=== PATIENT | male | born 1940 | race Caucasian/White ===

== ENCOUNTER 2020-08-30 14:27 | Outpatient (CLI) | payer OTHER, SELFPAY ==
--- NOTE | ~2020-08-30 | XR_ITS ---
EXAMINATION: XR chest 2V DATE: 08/30/2020 15:00 INDICATION: Shortness of breath TECHNIQUE: PA and lateral views of the chest were obtained. COMPARISON: Chest radiograph dated 01/06/2019 FINDINGS: Emphysema with prominent bullous change at the bilateral apices of the lungs. Additional chronic pleu ral parenchymal scarring at the right apex. Elevation of the left hemidiaphragm. There is increased i nterstitial pattern and mild groundglass opacities in the bilateral mid and lower lung zones. No pleu ral effusion or pneumothorax. Borderline heart size accounting for AP technique. Right coronary arter y stenting. Severe left glenohumeral osteoarthritis. IMPRESSION: 1. Interstitial and mild airspace opacities in the bilateral mid and lower lung zones most likely con gestive heart failure related mild pulmonary edema although differential includes pneumonia. 2. Emphysema with chronic right apical pleural-parenchymal scarring. 3. Chronic elevation of the left hemidiaphragm. 4. Borderline heart size. Reviewed, dictated and finalized at location B. X RAY OPERATOR IMPRESSION: 1. Interstitial and mild airspace opacities in the bilateral mid and lower lung zones most likely congestive heart failure related mild pulmonary edema althou gh differential includes pneumonia. 2. Emphysema with chronic right apical pleural-parenchymal scarring. 3. Chronic elevation of the left hemidiaphragm. 4. Borderline heart size.
[2020-08-30 15:33] LABS: Basophils Absolute Auto 0.1 K/mm3 (0.0-0.1); Basophils Percent Auto 0.8 % (0.2-1.2); Eosinophils Absolute Auto 0.4 K/mm3 (0-0.3); Eosinophils Percent Auto 5.4 % (0-4.4); Hematocrit 50.9 % (42.0-52.0); Immature Granulocyte Absolute 0.04 K/mm3 (0.00-0.031); Immature Granulocyte Percent A 0.5 % (0-0.5); Lymphocytes Absolute Auto 1.24 K/mm3 (0.9-3.2); Lymphocytes Percent Auto 16.3 % (18.3-44.2); Mean Corpuscular HGB Conc 33.4 g/dl (32-36); Mean Corpuscular Volume 95.7 fl (80-100); Mean Platelet Volume 8.8 fl (7.4-10.4); Monocytes Absolute Auto 0.7 K/mm3 (0.1-0.6); Monocytes Percent Auto 9.4 % (2.6-8.5); Neutrophils Absolute Auto 5.1 K/mm3 (1.3-6.7); Neutrophils Percent Auto 67.6 % (45.5-73.1); Platelet Count Result 167 k/mm3 (150-375); Red Blood Count 5.32 M/mm3 (4.6-6.20); Red Cell Distribution Width 13.2 % (11.5-14.5); White Blood Count 7.6 K/mm3 (4.5-10.0)
[2020-08-30 15:46] LABS: Alanine Aminotransferase 20 U/L (4-50); Albumin Level 4.2 g/dL (3.5-5.1); Alkaline Phosphatase 72 U/L (38-126); Anion Gap 4 mmol/L (8-16); Aspartate Amino Transferase 36 U/L (17-59); Bilirubin,Total 0.6 mg/dL (0.2-1.3); Blood Urea Nitrogen 15 mg/dL (9-20); Calcium 9.1 mg/dL (8.4-10.2); Carbon Dioxide 30 mmol/L (22-30); Chloride 104 mmol/L (98-107); Estimated Glomerular Filt Rate > 60; Glucose 77 mg/dL (75-110); Potassium 4.7 mmol/L (3.4-5.0); Sodium 138 mmol/L (137-145)
[2020-08-30 15:55] LABS: NT Pro B Type Natriuretic Pept 102 PG/ML (5-100)
== END 2020-08-30 14:28 | disposition home or self-care (01) ==
PROVIDERS: PCP Family Medicine; Visit Provider Physician Assistant
DX: I50.9 Heart failure, unspecified (principal); R06.02 Shortness of breath; R60.9 Edema, unspecified; J43.9 Emphysema, unspecified; R91.8 Other nonspecific abnormal finding of lung field
CPT/HCPCS: 36415; 71046; 80053; 83880; 84443; 85025

== ENCOUNTER 2020-09-07 14:44 | Outpatient (CLI) | payer OTHER, SELFPAY ==
--- NOTE | ~2020-09-07 | XR_ITS ---
EXAMINATION: XR chest 2V DATE: 09/07/2020 15:30 INDICATION: Shortness of breath. TECHNIQUE: Frontal and lateral views of the chest were obtained. COMPARISON: Chest 2 views 08/30/2020, chest CT 07/11/2013 FINDINGS: Again seen is marked elevation of left hemidiaphragm. There are lucencies in the lungs, con sistent with emphysema. There is scarring at the lung apices. There are interstitial opacities and mi ld diffuse airspace opacities in the mid and lower lung zones. No pleural effusion or pneumothorax. T he heart size is normal. IMPRESSION: 1. Stable airspace and interstitial opacities in the mid and lower lung zones, consistent with pneumo maritza versus mild pulmonary edema. 2. Emphysema. 3. Persistent marked elevation of left hemidiaphragm. Reviewed, dictated and finalized at location A. TER PILOT IMPRESSION: 1. Stable airspace and interstitial opacities in the mid and lower lung zones, consistent with pneumonia versus mild pulmonary edema. 2. Emphysema. 3. Persistent marked elevation of left hemidiaphragm.
[2020-09-07 15:26] LABS: Basophils Absolute Auto 0.1 K/mm3 (0.0-0.1); Basophils Percent Auto 0.9 % (0.2-1.2); Eosinophils Absolute Auto 0.4 K/mm3 (0-0.3); Eosinophils Percent Auto 6.1 % (0-4.4); Hematocrit 50.2 % (42.0-52.0); Hemoglobin 16.9 g/dL (14.0-18.0); Immature Granulocyte Absolute 0.03 K/mm3 (0.00-0.031); Immature Granulocyte Percent A 0.4 % (0-0.5); Lymphocytes Absolute Auto 1.31 K/mm3 (0.9-3.2); Lymphocytes Percent Auto 19.6 % (18.3-44.2); Mean Corpuscular HGB Conc 33.7 g/dl (32-36); Mean Corpuscular Hemoglobin 32.4 pg (26-34); Mean Corpuscular Volume 96.4 fl (80-100); Mean Platelet Volume 9.5 fl (7.4-10.4); Monocytes Absolute Auto 0.5 K/mm3 (0.1-0.6); Monocytes Percent Auto 8.1 % (2.6-8.5); Neutrophils Absolute Auto 4.4 K/mm3 (1.3-6.7); Neutrophils Percent Auto 64.9 % (45.5-73.1); Platelet Count Result 153 k/mm3 (150-375); Red Blood Count 5.21 M/mm3 (4.6-6.20); Red Cell Distribution Width 13.2 % (11.5-14.5); White Blood Count 6.7 K/mm3 (4.5-10.0)
[2020-09-07 15:39] LABS: Alanine Aminotransferase 20 U/L (4-50); Albumin Level 4.3 g/dL (3.5-5.1); Alkaline Phosphatase 76 U/L (38-126); Anion Gap 7 mmol/L (8-16); Aspartate Amino Transferase 38 U/L (17-59); Bilirubin,Total 0.5 mg/dL (0.2-1.3); Blood Urea Nitrogen 20 mg/dL (9-20); Calcium 8.8 mg/dL (8.4-10.2); Carbon Dioxide 29 mmol/L (22-30); Chloride 106 mmol/L (98-107); Estimated Glomerular Filt Rate > 60; Glucose 88 mg/dL (75-110); Potassium 4.3 mmol/L (3.4-5.0); Sodium 142 mmol/L (137-145)
[2020-09-07 15:48] LABS: NT Pro B Type Natriuretic Pept 89 PG/ML (5-100)
== END 2020-09-07 14:45 | disposition home or self-care (01) ==
PROVIDERS: PCP Family Medicine; Visit Provider Physician Assistant
DX: I50.9 Heart failure, unspecified (principal); R06.00 Dyspnea, unspecified; J44.9 Chronic obstructive pulmonary disease, unspecified; J43.9 Emphysema, unspecified; R91.8 Other nonspecific abnormal finding of lung field
CPT/HCPCS: 36415; 71046; 80053; 83880; 85025

== ENCOUNTER 2020-09-19 08:51 | Outpatient (CLI) | payer OTHER, SELFPAY ==
--- NOTE | ~2020-09-19 | XR_ITS ---
EXAMINATION: XR chest 2V DATE: 09/19/2020 09:04 INDICATION: Shortness of breath TECHNIQUE: PA and lateral views of the chest are obtained. COMPARISON: 09/07/2020 FINDINGS: There is chronic elevation of the left hemidiaphragm. Interstitial and airspace opacities o f the mid and lower lung zones persist with slight improvement. There is scarring in the right lung a pex. There is no pleural effusion or pneumothorax. The heart size is normal. A coronary artery stent is noted. There is moderate thoracic spondylosis. IMPRESSION: 1. Persistent but improved interstitial and airspace opacities of the mid and lower lung zones, consi stent with pulmonary edema versus pneumonia. Reviewed, dictated and finalized at location A. TECHNOLOGY ENGINEERING TECHNOLOGIST IMPRESSION: 1. Persistent but improved interstitial and airspace opacities of the mid and l ower lung zones, consistent with pulmonary edema versus pneumonia.
== END 2020-09-19 08:52 | disposition home or self-care (01) ==
PROVIDERS: PCP Family Medicine; Visit Provider Physician Assistant
DX: R06.02 Shortness of breath (principal); R91.8 Other nonspecific abnormal finding of lung field
CPT/HCPCS: 71046

== ENCOUNTER → 2020-09-26 11:46 | Outpatient (CLI) | payer OTHER, SELFPAY ==
--- NOTE | ~2020-09-26 | CT_ITS ---
EXAMINATION: CT diagnostic chest wo con DATE: 09/26/2020 11:59 INDICATION: Dyspnea. Shortness of breath. TECHNIQUE: Computed tomography (CT) of the chest was performed without intravenous contrast. Automate d exposure control and iterative reconstruction technique were employed. Exam dose: 709.42 mGy-cm to dorothy exam DLP. COMPARISON: 09/19/2020 2 view chest 07/11/2013 CT chest FINDINGS: There are prominent emphysematous changes, more prominent in the upper lobes. There is bilateral upper lobe/apical scarring, right greater than left, stable since 07/11/2013. No interval pulmonary mass lesion or pulmonary consolidation. Chronic elevation of the left leaf of the diaphragm. No thoracic aortic aneurysm or dissection. There is aortic and coronary artery calcification. Normal heart size. No pericardial effusion. No hilar or mediastinal mass lesion or lymphadenopathy is eviden t. Normal morphology of the adrenal glands. Probable exophytic upper pole 2.9 cm right renal cyst. No suspicious osteolytic or osteoblastic lesions are noted. IMPRESSION: Prominent emphysema Bilateral upper lobe scarring, right greater than left, stable since 07/11/2013 Chronic elevation of left leaf of diaphragm Reviewed, dictated and finalized at [facility]. Reviewed, dictated and finalized at location A. MACISTS
== END ==
PROVIDERS: PCP Family Medicine; Visit Provider Physician Assistant
DX: R06.00 Dyspnea, unspecified (principal); J43.9 Emphysema, unspecified; R91.8 Other nonspecific abnormal finding of lung field
CPT/HCPCS: 71250

== ENCOUNTER 2021-07-17 10:12 | Outpatient (CLI) | payer OTHER, SELFPAY ==
[2021-07-17 11:19] LABS: Basophils Absolute Auto 0.1 K/mm3 (0.0-0.1); Basophils Percent Auto 0.9 % (0.2-1.2); Eosinophils Absolute Auto 0.3 K/mm3 (0-0.3); Eosinophils Percent Auto 5.6 % (0-4.4); Hematocrit 50.4 % (42.0-52.0); Hemoglobin 16.7 g/dL (14.0-18.0); Immature Granulocyte Absolute 0.02 K/mm3 (0.00-0.031); Immature Granulocyte Percent A 0.3 % (0-0.5); Immature Platelet Fraction Pct 2.1 % (0.9-11.2); Lymphocytes Absolute Auto 0.97 K/mm3 (0.9-3.2); Lymphocytes Percent Auto 16.5 % (18.3-44.2); Mean Corpuscular HGB Conc 33.1 g/dl (32-36); Mean Corpuscular Hemoglobin 32.6 pg (26-34); Mean Corpuscular Volume 98.4 fl (80-100); Mean Platelet Volume 9.5 fl (7.4-10.4); Monocytes Absolute Auto 0.6 K/mm3 (0.1-0.6); Monocytes Percent Auto 9.4 % (2.6-8.5); Neutrophils Percent Auto 67.3 % (45.5-73.1); Platelet Count Result 155 k/mm3 (150-375); Red Blood Count 5.12 M/mm3 (4.6-6.20); Red Cell Distribution Width 12.9 % (11.5-14.5); White Blood Count 5.9 K/mm3 (4.5-10.0)
[2021-07-17 11:32] LABS: Add Urine Microscopic? NO; Appearance Urine Clear (Clear); Bilirubin Urine Negative (Negative); Blood Urine Negative (Negative); Color Urine Yellow (Yellow); Glucose Urine UA Negative (Negative); Ketones Urine Negative (Negative); Leukocyte Esterase Ur Negative LEU/UL (NEGATIVE); Nitrate Urine Negative (Negative); Protein Urine Negative (Negative); Specific Grav Ur 1.017 (1.001-1.035); Urobilinogen Urine Negative mg/dL (<2.0)
[2021-07-17 12:08] LABS: Alkaline Phosphatase 56 U/L (38-126)
[2021-07-17 12:09] LABS: Alanine Aminotransferase 23 U/L (4-50); Albumin Level 4.6 g/dL (3.5-5.1); Anion Gap 5 mmol/L (8-16); Aspartate Amino Transferase 39 U/L (17-59); Bilirubin,Total 0.9 mg/dL (0.2-1.3); Blood Urea Nitrogen 16 mg/dL (9-20); Carbon Dioxide 33 mmol/L (22-30); Chloride 100 mmol/L (98-107); Cholesterol 167 mg/dL (0-200); Estimated Glomerular Filt Rate > 60; Glucose 92 mg/dL (65-110); HDL Direct 44 mg/dL; LDL Cholesterol Direct 93 mg/dL; Potassium 4.7 mmol/L (3.4-5.0); Sodium 138 mmol/L (137-145); Triglycerides 137 mg/dL (<150)
== END 2021-07-17 10:13 | disposition home or self-care (01) ==
PROVIDERS: PCP Family Medicine; Visit Provider Physician Assistant
DX: E78.2 Mixed hyperlipidemia (principal); I11.9 Hypertensive heart disease without heart failure; J44.9 Chronic obstructive pulmonary disease, unspecified; I25.10 Atherosclerotic heart disease of native coronary artery without angina pectoris; Z87.891 Personal history of nicotine dependence
CPT/HCPCS: 36415; 80053; 80061; 81003; 84443; 85025; 85055

== ENCOUNTER → 2021-10-23 01:33 | Outpatient (CLI) | payer OTHER, SELFPAY ==
[2021-10-23 11:54] LABS: Influenza A QL RT-PCR Positive (Negative); Influenza B QL RT-PCR Negative (Negative); SARS-CoV-2 RNA PCR Negative
== END ==
PROVIDERS: PCP Family Medicine; Visit Provider Physician Assistant
DX: R68.89 Other general symptoms and signs (principal); Z20.822 Contact with and (suspected) exposure to COVID-19
CPT/HCPCS: 87502; C9803; U0003; U0005

== ENCOUNTER 2021-10-26 10:37 | Outpatient (CLI) | payer OTHER, SELFPAY ==
--- NOTE | ~2021-10-26 | XR_ITS ---
EXAMINATION: XR chest 2V DATE: 10/26/2021 11:10 INDICATION: 2 weeks of productive cough TECHNIQUE: PA and lateral views of the chest were obtained. COMPARISON: Chest radiograph dated 09/19/[address] dated 09/26/2020 and 07/11/2013 FINDINGS: Chronic elevation of the left hemidiaphragm. Emphysema with chronic right apical pleural-parenchymal scarring. New opacities in the bilateral mid and lower lung zones. No pleural effusion or pneumothora x. Heart size is normal. Coronary artery stenting. Mild lower thoracic dextrocurvature with mild spon dylosis. IMPRESSION: 1. New opacities in the bilateral mid and lower lung zones which could represent pneumonia or pulmona ry edema. 2. Emphysema with chronic right apical pleural-parenchymal scarring. 2. Chronic elevation of the left hemidiaphragm. Reviewed, dictated and finalized at location A. IMPRESSION: 1. New opacities in the bilateral mid and lower lung zones which could represen t pneumonia or pulmonary edema. 2. Emphysema with chronic right apical pleural-parenchymal scarring. 2. Chronic elevation of the left hemidiaphragm.
== END 2021-10-26 10:38 | disposition home or self-care (01) ==
LOC: ANHIMG 10:43
PROVIDERS: PCP Family Medicine; Visit Provider Physician Assistant
DX: R05.9 Cough, unspecified (principal); M47.814 Spondylosis without myelopathy or radiculopathy, thoracic region; J10.1 Influenza due to other identified influenza virus with other respiratory manifestations; R91.8 Other nonspecific abnormal finding of lung field; J43.9 Emphysema, unspecified
CPT/HCPCS: 71046

== ENCOUNTER 2021-12-06 12:49 | Outpatient (CLI) | payer OTHER, SELFPAY ==
[2021-12-06 13:10] VITALS: PULSE 90; O2SAT 91
[2021-12-06 13:12] VITALS: PULSE 90; O2SAT 87
[2021-12-06 13:14] VITALS: PULSE 89; O2SAT 89
[2021-12-06 13:16] VITALS: PULSE 86; O2SAT 89
[2021-12-06 13:18] VITALS: PULSE 87; O2SAT 90
--- NOTE | 2021-12-06 13:28 | HOMEO2EVAL ---
Evaluation was performed at [facility] Home Oxygen Evaluation RC: Home Oxygen (O2) Evaluation Start: 12/06/21 13:25 Freq: Status: Active Protocol: RPE Activity Type Activity Date Activity User E-Sign Co-Sign Detail Recorded Client Recorded Date Recorded By Document 12/06/21 13:10 KRM [email or web address] 12/06/21 13:28 KRM Document 12/06/21 13:12 KRM [email or web address] 12/06/21 13:28 KRM Document 12/06/21 13:14 KRM [email or web address] 12/06/21 13:28 KRM Document 12/06/21 13:16 [email or web address] [email or web address] 12/06/21 13:28 KRM Document 12/06/21 13:18 KRM [email or web address] 12/06/21 13:28 KRM 12/06/21 12/06/21 12/06/21 13:10 13:12 13:14 Home O2 Evaluation Test Phase Resting Exercise Exercise Oxygen Delivery Room Air Room Air Nasal Cannula Oxygen Flow Rate (L/min) 1 Pulse Oximetry (90-100 %) 91 87 L 89 L Pulse Rate (60-100 beats/min) 90 90 89 Activity Tolerance Fair Fair Ambulation Distance (feet) Ambulation Distance (meters) Home Oxygen Evaluation Comments Treatment Charges 12/06/21 12/06/21 13:16 13:18 Home O2 Evaluation Test Phase Exercise Exercise Oxygen Delivery Nasal Cannula Nasal Cannula Oxygen Flow Rate (L/min) 2 3 Pulse Oximetry (90-100 %) 89 L 90 Pulse Rate (60-100 beats/min) 86 87 Activity Tolerance Fair Fair Ambulation Distance (feet) 120 Ambulation Distance (meters) 36.57 Home Oxygen Evaluation Comments 3 lpm with activity. Treatment Charges O2 Evaluation - Outpatient
== END 2021-12-06 12:50 | disposition home or self-care (01) ==
LOC: ANHPFT 12:50
PROVIDERS: PCP Family Medicine; Visit Provider Nurse Practitioner Family
DX: R09.02 Hypoxemia (principal); J44.9 Chronic obstructive pulmonary disease, unspecified
CPT/HCPCS: 94618

== ENCOUNTER 2022-01-06 16:48 | Outpatient (CLI) | payer OTHER, SELFPAY ==
--- NOTE | ~2022-01-06 | XR_ITS ---
XR lumbar spine 2-3V DATE: 01/06/2022 17:12 INDICATION: Low back pain, radiating bilaterally TECHNIQUE: AP, lateral, coned lateral lumbosacral views COMPARISON: None FINDINGS: There is osteopenia. There is approximately 20 degrees rotatory levoscoliosis of the lumbar spine. There is moderately severe degenerative disc disease throughout the lumbar and lumbosacral spine. No fracture or bone destruction is evident. The sacroiliac joints are intact. Abdominal aortic calcification. IMPRESSION: Osteopenia 28 degrees rotatory levoscoliosis Moderately severe degenerative disc disease throughout lumbar spine Reviewed, dictated and finalized at location A.
== END 2022-01-06 16:49 | disposition home or self-care (01) ==
PROVIDERS: PCP Family Medicine; Visit Provider Nurse Practitioner Family
DX: M85.88 Other specified disorders of bone density and structure, other site (principal); M51.36 Other intervertebral disc degeneration, lumbar region
CPT/HCPCS: 72100

== ENCOUNTER 2022-01-16 09:43 | Outpatient (CLI) | payer OTHER, SELFPAY ==
--- NOTE | ~2022-01-16 | MR_ITS ---
EXAMINATION: MR lumbar spine wo con DATE: 01/16/2022 12:01 INDICATION: Chronic low back pain. Bilateral leg weakness. TECHNIQUE: Magnetic resonance imaging (MRI) of the lumbar spine was performed without intravenous con trast. Sequences included sagittal T2-weighted FSE, sagittal T2-weighted FS FSE, sagittal T1-weighted FSE, and axial T2-weighted FSE. COMPARISON: Lumbar spine radiographs 01/06/22 FINDINGS: There is 22 degrees levoscoliosis of lumbar spine. Vertebral body heights are normal. There is moderately decreased disc height at T12-L1, severely decreased disc height at L1-L2, moderately d ecreased disc height at L2-L3, severely decreased disc height at L3-L4 and L4-L5, and moderately decr eased disc height at L5-S1 with endplate remodeling. The distal spinal cord signal intensity is priscilla l. The conus medullaris is at T12. The following disc levels are specifically discussed: T12-L1: The disc is bulging and has an annular fissure. There is severe right and moderate left facet joint osteoarthritis. There is moderate right and mild left neural foraminal stenosis. There is mild central canal stenosis. L1-L2: The disc is bulging and has an annular fissure. There is severe right and moderate left facet joint osteoarthritis. There is moderate right and mild left neural foraminal stenosis. There is mild central canal stenosis. L2-L3: The disc is bulging and has an annular fissure. There is severe bilateral facet joint osteoart hritis. There is moderate bilateral neural foraminal stenosis. There is moderate central canal stenos is. There is severe stenosis of right lateral recess. L3-L4: The disc is bulging and has an annular fissure. There is moderate bilateral facet joint osteoa rthritis. There is moderate bilateral neural foraminal stenosis. There is mild central canal stenosis . L4-L5: The disc is bulging and has an annular fissure. There is severe right facet joint osteoarthrit is. There is ankylosis of left facet joint with severe hypertrophy. 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 There is moderate bilateral neural foraminal stenosis. There is mild central canal stenosis wi th posterior decompression. L5-S1: The disc is bulging and has an annular fissure. There is severe bilateral facet joint osteoart hritis. There is mild right and moderate left neural foraminal stenosis. There is mild central canal stenosis. IMPRESSION: 1. Severe lumbar spondylosis. 2. Lumbar levoscoliosis. Reviewed, dictated and finalized at location B.
--- NOTE | 2022-01-16 17:28 | WPDPFTINT ---
PFT Procedure Performed PFT Procedure Performed Spirometry with Pre/Post Bronchodilator Plethysmography (Lung Vol) Diffusing Cap (DLCO) Flow Vol Loop PFT Interpretation This is a pulmonary function test with pre and post-bronchodilator spirometry, plethysmography and diffusing capacity. The test was performed and results interpreted in accordance with the 2019 and 2005 ATS/ERS Task Force guidelines respectively using the Global Lung Function Initiative-2012 reference equations. Patient demonstrated good effort and cooperation. Reproducibility criteria were met. The quality of the pre bronchodilator spirometry maneuver was Grade A and post bronchodilator spirometry maneuver was Grade A. Findings: Spirometry: The contour the inspiratory and expiratory flow tracing are normal. The pre bronchodilator FVC is 3.14 L, 75% predicted. The pre bronchodilator FEV1 is 2.32 L, 75% predicted. The pre bronchodilator FEV1: FVC ratio 74%. The post bronchodilator FVC is 3.05 L, representing a 3% decrease. The post bronchodilator FEV1 is 2.42 L, representing a 4% increase. The post bronchodilator FEV1: FVC ratio 79%. Plethysmography: The total lung capacity is 5.42 L, 73% predicted. The functional residual capacity is 3.00 L, 74% predicted. The residual volume is 2.21 L, 80% predicted. Diffusing capacity: The diffusing capacity unadjusted for hemoglobin and carboxyhemoglobin is 15.6, 63% predicted. The diffusing capacity adjusted for alveolar volume is 3.26, 92% predicted. Impression: There is a mild restrictive ventilatory abnormality with a normal FEV1. The spirometry is normal without evidence of an obstructive abnormality. There is no significant improvement after inhaling a single dose of albuterol. The diffusing capacity unadjusted for hemoglobin and carboxyhemoglobin is mildly decreased and normalizes when adjusted for alveolar volume. There are no prior studies for comparison
== END 2022-01-16 09:44 | disposition home or self-care (01) ==
LOC: ANHPFT 09:45
PROVIDERS: PCP Family Medicine; Visit Provider Nurse Practitioner Family
DX: J44.9 Chronic obstructive pulmonary disease, unspecified (principal); M47.816 Spondylosis without myelopathy or radiculopathy, lumbar region; R29.898 Other symptoms and signs involving the musculoskeletal system; R94.2 Abnormal results of pulmonary function studies
CPT/HCPCS: 72148; 94060; 94726; 94729

== ENCOUNTER 2022-08-05 08:54 | Outpatient (CLI) | payer OTHER, SELFPAY ==
[2022-08-05 09:32] LABS: Hematocrit 47.5 % (42.0-52.0); Hemoglobin 15.4 g/dL (14.0-18.0); Mean Corpuscular HGB Conc 32.4 g/dl (32-36); Mean Corpuscular Hemoglobin 31.9 pg (26-34); Mean Corpuscular Volume 98.3 fl (80-100); Mean Platelet Volume 9.1 fl (7.4-10.4); Platelet Count Result 145 k/mm3 (150-375); Red Blood Count 4.83 M/mm3 (4.6-6.20); Red Cell Distribution Width 12.8 % (11.5-14.5); White Blood Count 6.6 K/mm3 (4.5-10.0)
[2022-08-05 09:32] LABS: Add Urine Microscopic? NO; Appearance Urine Clear (Clear); Bilirubin Urine Negative (Negative); Blood Urine Negative (Negative); Color Urine Yellow (Yellow); Glucose Urine UA Negative (Negative); Ketones Urine Negative (Negative); Leukocyte Esterase Ur Negative LEU/UL (NEGATIVE); Nitrate Urine Negative (Negative); Protein Urine Negative (Negative); Urobilinogen Urine 0.2 mg/dL (<2.0); pH Urine 6.5 (5.0-9.0)
[2022-08-05 09:56] LABS: Alanine Aminotransferase 22 U/L (6-50); Albumin Level 4.3 g/dL (3.5-5.1); Alkaline Phosphatase 53 U/L (38-126); Anion Gap 3 mmol/L (8-16); Aspartate Amino Transferase 30 U/L (17-59); Bilirubin,Total 0.6 mg/dL (0.2-1.3); Blood Urea Nitrogen 18 mg/dL (9-20); Calcium 8.5 mg/dL (8.4-10.2); Carbon Dioxide 33 mmol/L (22-30); Chloride 101 mmol/L (98-107); Cholesterol 159 mg/dL (0-200); Estimated Glomerular Filt Rate > 60; Glucose 90 mg/dL (65-110); HDL Direct 49 mg/dL; Potassium 4.2 mmol/L (3.4-5.0); Sodium 137 mmol/L (137-145); Triglycerides 66 mg/dL (<150)
[2022-08-05 10:08] LABS: LDL Cholesterol Direct 74 mg/dL
== END 2022-08-05 08:55 | disposition home or self-care (01) ==
PROVIDERS: PCP Family Medicine; Visit Provider Physician Assistant
DX: Z00.00 Encounter for general adult medical examination without abnormal findings (principal); I11.9 Hypertensive heart disease without heart failure; I25.10 Atherosclerotic heart disease of native coronary artery without angina pectoris; E78.2 Mixed hyperlipidemia; J44.9 Chronic obstructive pulmonary disease, unspecified
CPT/HCPCS: 36415; 80053; 80061; 81003; 84443; 85027

== ENCOUNTER 2023-02-12 11:26 | Outpatient (CLI) | payer OTHER, SELFPAY ==
[2023-02-12 12:31] LABS: Alanine Aminotransferase 21 U/L (6-50); Albumin Level 4.3 g/dL (3.5-5.1); Alkaline Phosphatase 58 U/L (38-126); Anion Gap 3 mmol/L (8-16); Aspartate Amino Transferase 32 U/L (17-59); Bilirubin,Total 0.8 mg/dL (0.2-1.3); Blood Urea Nitrogen 17 mg/dL (9-20); Calcium 8.6 mg/dL (8.4-10.2); Carbon Dioxide 31 mmol/L (22-30); Chloride 104 mmol/L (98-107); Estimated Glomerular Filt Rate > 60; Glucose 92 mg/dL (65-110); Potassium 4.4 mmol/L (3.4-5.0); Sodium 138 mmol/L (137-145)
== END 2023-02-12 11:27 | disposition home or self-care (01) ==
PROVIDERS: PCP Family Medicine; Visit Provider Physician Assistant
DX: I11.9 Hypertensive heart disease without heart failure (principal); N18.9 Chronic kidney disease, unspecified
CPT/HCPCS: 36415; 80053

== ENCOUNTER 2023-08-14 09:52 | Outpatient (CLI) | payer OTHER, SELFPAY ==
[2023-08-14 10:46] LABS: Hematocrit 47.4 % (42.0-52.0); Hemoglobin 15.2 g/dL (14.0-18.0); Mean Corpuscular HGB Conc 32.1 g/dl (32-36); Mean Corpuscular Hemoglobin 31.9 pg (26-34); Mean Corpuscular Volume 99.6 fl (80-100); Mean Platelet Volume 9.4 fl (7.4-10.4); Platelet Count Result 155 k/mm3 (150-375); Red Blood Count 4.76 M/mm3 (4.6-6.20); Red Cell Distribution Width 12.9 % (11.5-14.5); White Blood Count 5.6 K/mm3 (4.5-10.0)
[2023-08-14 10:54] LABS: Alanine Aminotransferase 16 U/L (6-50); Alkaline Phosphatase 65 U/L (38-126); Anion Gap 7 mmol/L (8-16); Aspartate Amino Transferase 28 U/L (17-59); Bilirubin,Total 0.6 mg/dL (0.2-1.3); Blood Urea Nitrogen 15 mg/dL (9-20); Calcium 8.7 mg/dL (8.4-10.2); Carbon Dioxide 32 mmol/L (22-30); Chloride 102 mmol/L (98-107); Cholesterol 144 mg/dL (0-200); Estimated Glomerular Filt Rate > 60; Glucose 90 mg/dL (65-110); HDL Direct 42 mg/dL; Potassium 4.1 mmol/L (3.4-5.0); Sodium 141 mmol/L (137-145); Triglycerides 88 mg/dL (<150)
[2023-08-14 11:05] LABS: LDL Cholesterol Direct 75 mg/dL
[2023-08-14 11:10] LABS: Bacteria Urine 4+ /hpf; Non Pathogenic Casts 0-2; RBC Urine 0-2 /hpf (0-2); Squamous Epithelial Cell Urine None seen /hpf (Few)
[2023-08-14 11:19] LABS: Appearance Urine Clear (Clear); Color Urine Yellow (Yellow); Protein Urine Negative (Negative); pH Urine 6.5 (5.0-9.0)
[2023-08-14 11:20] LABS: Bilirubin Urine Negative (Negative); Blood Urine Negative (Negative); Glucose Urine UA Negative (Negative); Ketones Urine Negative (Negative); Leukocyte Esterase Ur Trace LEU/UL (NEGATIVE); Nitrate Urine Negative (Negative); Urobilinogen Urine 0.2 mg/dL (<2.0)
[2023-08-14 11:24] LABS: Add Urine Microscopic? YES
== END 2023-08-14 09:53 | disposition home or self-care (01) ==
LOC: ANHLAB 09:58
PROVIDERS: PCP Family Medicine; Visit Provider Physician Assistant Medical
DX: J44.9 Chronic obstructive pulmonary disease, unspecified (principal); E78.2 Mixed hyperlipidemia; I11.9 Hypertensive heart disease without heart failure
CPT/HCPCS: 36415; 80053; 80061; 81001; 84443; 85027; 85055

== ENCOUNTER 2023-09-29 15:30 | Outpatient (CLI) | payer OTHER, SELFPAY ==
[2023-09-29 16:25] LABS: Influenza A QL RT-PCR Negative (Negative); Influenza B QL RT-PCR Negative (Negative); RSV RNA, RT-PCR Negative (Negative); SARS-CoV-2 RNA PCR Negative (Negative)
== END 2023-09-29 15:31 | disposition home or self-care (01) ==
LOC: ANHLAB 15:31
PROVIDERS: PCP Family Medicine; Visit Provider Physician Assistant
DX: R50.9 Fever, unspecified (principal); Z20.822 Contact with and (suspected) exposure to COVID-19
CPT/HCPCS: 87637

== ENCOUNTER 2024-02-11 11:35 | Outpatient (CLI) | payer OTHER, SELFPAY ==
[2024-02-11 12:03] LABS: Alanine Aminotransferase 14 U/L (6-50); Albumin Level 4.1 g/dL (3.5-5.1); Alkaline Phosphatase 66 U/L (38-126); Anion Gap 7 mmol/L (4-12); Aspartate Amino Transferase 25 U/L (17-59); Bilirubin,Total 0.6 mg/dL (0.2-1.3); Blood Urea Nitrogen 15 mg/dL (9-20); Calcium 8.7 mg/dL (8.4-10.2); Carbon Dioxide 33 mmol/L (22-30); Chloride 100 mmol/L (98-107); Estimated Glomerular Filt Rate > 60; Glucose 92 mg/dL (65-110); Potassium 4.3 mmol/L (3.4-5.0); Sodium 140 mmol/L (137-145)
== END 2024-02-11 11:36 | disposition home or self-care (01) ==
PROVIDERS: PCP Family Medicine; Visit Provider Physician Assistant
DX: E78.2 Mixed hyperlipidemia (principal); I11.9 Hypertensive heart disease without heart failure; I25.10 Atherosclerotic heart disease of native coronary artery without angina pectoris
CPT/HCPCS: 36415; 80053

== ENCOUNTER 2024-11-22 09:07 | Outpatient (CLI) | payer OTHER, SELFPAY ==
[2024-11-22 09:45] LABS: Add Urine Microscopic? NO; Appearance Urine Clear (Clear); Bilirubin Urine Negative (Negative); Blood Urine Negative (Negative); Color Urine Yellow (Yellow); Glucose Urine UA Negative (Negative); Ketones Urine Negative (Negative); Leukocyte Esterase Ur Negative LEU/UL (Negative); Nitrate Urine Negative (Negative); Protein Urine Negative (Negative); Specific Grav Ur 1.018 (1.001-1.035); Urobilinogen Urine 0.2 mg/dL (<2.0)
[2024-11-22 09:46] LABS: Hematocrit 45.1 % (42.0-52.0); Hemoglobin 14.4 g/dL (14.0-18.0); Immature Platelet Fraction Pct 1.8 % (0.9-11.2); Mean Corpuscular HGB Conc 31.9 g/dl (32-36); Mean Corpuscular Hemoglobin 32.5 pg (26-34); Mean Corpuscular Volume 101.8 fl (80-100); Mean Platelet Volume 9.3 fl (7.4-10.4); Platelet Count Result 139 k/mm3 (150-375); Red Blood Count 4.43 M/mm3 (4.6-6.20); Red Cell Distribution Width 12.4 % (11.5-14.5); White Blood Count 5.5 K/mm3 (4.5-10.0)
[2024-11-22 10:01] LABS: Alanine Aminotransferase 17 U/L (6-50); Albumin Level 4.1 g/dL (3.5-5.1); Alkaline Phosphatase 59 U/L (38-126); Anion Gap 6 mmol/L (4-12); Aspartate Amino Transferase 23 U/L (17-59); Bilirubin,Total 0.8 mg/dL (0.2-1.3); Blood Urea Nitrogen 15 mg/dL (9-20); Calcium 8.4 mg/dL (8.4-10.2); Carbon Dioxide 34 mmol/L (22-30); Chloride 100 mmol/L (98-107); Cholesterol 120 mg/dL (0-200); Estimated Glomerular Filt Rate > 60; Glucose 94 mg/dL (65-110); HDL Direct 37 mg/dL; Potassium 4.5 mmol/L (3.4-5.0); Sodium 140 mmol/L (137-145); Triglycerides 135 mg/dL (<150)
--- OUTSIDE RECORDS SUMMARY | 2024-11-22 10:03 | XMS_ITS | CONTINUITY OF CARE DOCUMENT ---
Author Name loraine baron Address Unknown Organization [facility] Address [address] [place] [address] Phone [phone] Care Team Providers Care Certified Nurse Midwife Name Role Phone Gerard Salinas MD Unavailable JOSH LIMA MD Unavailable JOSH LIMA MD Unavailable PROBLEMS Condition Status Date Provider Notes LEFT VENTRICULAR FUNCTION, DECREASED active Marlene Torres CAD-10/11 CATH PATENT STENT R CA EF 40 ELVEDP active ? Gerard Salinas MD Hyperlipidemia active Gerard Salinas MD HTN-07/15 ECHO NL EF 45 - ECHO LVH EF 40 active ? Gerard Salinas MD CARDIOMYOPATHY active Ross Geronimo MD SHORTNESS OF BREATH active Gerard Salinas MD Dizziness active Gerard Salinas MD Tobacco use, quit active Gerard Salinas MD Family History of Hypertension: active ? Venessa Salinas MD SLEEP APNEA active Gerard Salinas MD Dizziness active Gerard Salinas MD Family History of Hypertension: active ? Venessa Salinas MD STENT-RCA, PARVIZ STENT active ? SETH Rothman NP ENCOUNTERS Date Type Provider Location Encounter Diag nosis - In-person encounter Office Visit Gerard Salinas MD [facility] [place] [facility] - In-person encounter Office Visit Gerard Salinas MD [facility] - In-person encounter Office Visit Gerard Salinas MD [facility] - In-person encounter Office Visit Aquilino Prescott MD [facility] - In-person encounter Office Visit Gerard Salinas MD [facility] Dizziness - In-person encounter Office Visit Gerard Salinas MD [facility] - In-person encounter Office Visit Gerard Salinas MD [facility] HyperlipidemiaSLEEP APNEA - In-person encounter Office Visit Gerard Salinas MD [facility] Hyperlipidemia - In-person encounter Office Visit Gerard Salinas MD [facility] Family History of Hypertension: - In-person encounter Office Visit Gerard Slainas MD [facility] Tobacco use, quit - In-person encounter Office Visit Gerard Salinas MD [facility] DizzinessFamily History of Hypertension: - In-person encounter Office Visit Gerard Salinas MD [facility] HTN-07/15 ECHO NL EF 45 - 5/11 ECHO LVH EF 40SHORTNESS OF BREATH - In-person encounter Office Visit Gerard Salinas MD [facility] [place] - In-person encounter Office Visit Gerard Salinas MD [facility] - In-person encounter Office Visit Gerard Salinas MD [facility] - In-person encounter Office Visit Ross Geronimo MD [facility] HTN-07/15 ECHO NL EF 45 - 5/11 ECHO LVH EF 40CARDIOMYOPATHY - In-person encounter Office Visit Gerard Salinas MD [facility] CAD-10/11 CATH PATENT STENT RCA EF 40 ELVEDPHyperlipidemia - In-person encounter Office Visit Gerard Salinas MD [facility] - In-person encounter Office Visit Gerard Salinas MD [facility] - In-person encounter Office Visit Gerard Salinas MD [facility] STENT-RCA, PARVIZ STENT VITAL SIGNS Date Observation Value Provider Body Mass Index (Ratio) 35.92 kg/m2 Venessa Salinas MD blood pressure, cuff size large Ke brittanyi Leigh blood pressure, diastolic 62 mm[Hg] Ke rri Leigh blood pressure, systolic 128 mm[Hg] Stevie Abraham oxygen saturation, oximetry 91 % Migdalia Abraham respiratory rate E&M 16 /min Migdalia chacko pulse rate 80 /min Migdalia estevez weight E&M 276 [lb_av] Migdalia martin height E&M 73.5 [in_i] Migdalia estevez Body Mass Index (Ratio) 35.66 kg/m2 Venessa Salinas MD blood pressure, cuff size large Cr cindy Lockwood blood pressure, diastolic 70 mm[Hg] David Lockwood blood pressure, systolic 130 mm[Hg] Zackery Lockwood oxygen saturation, oximetry 93 % Seth Lockwood respiratory rate E&M 17 /min Seth Lockwood pulse rate 78 /min Seth puentes weight E&M 274 [lb_av] Seth puentes height E&M 73.5 [in_i] Seth puentes Body Mass Index (Ratio) 35.53 kg/m2 Venessa Salinas MD blood pressure, cuff size large Ke brittanyi Leigh blood pressure, diastolic 80 mm[Hg] Zack tang Carlosmatilderayarosa blood pressure, systolic 120 mm[Hg] Stevie Beaverrayarosa oxygen saturation, oximetry 93 % Migdalia Beaverrayarosa respiratory rate E&M 18 /min Migdalia King gabrielalfredotan pulse rate 73 /min Migdalia Dorado lder weight E&M 273 [lb_av] Migdalia Dorado lder height E&M 73.5 [in_i] Migdalia Dorado er Body Mass Index (Ratio) 36.05 kg/m2 Colleen Prescott MD blood pressure, diastolic 70 mm[Hg] Herbert Turner blood pressure, systolic 119 mm[Hg] Alirio Turner oxygen saturation, oximetry 93 % Eva Turner pulse rate 71 /min Eva Turner weight E&M 277 [lb_av] Eva Turner height E&M 73.5 [in_i] Eva Turner Body Mass Index (Ratio) 35.66 kg/m2 Venessa Salinas MD blood pressure, diastolic 81 mm[Hg] Jerson Naylor blood pressure, systolic 142 mm[Hg] Germania Naylor oxygen saturation, oximetry 92 % Najma Naylor respiratory rate E&M 18 /min Pamela Naylor pulse rate 76 /min Najma alan weight E&M 274 [lb_av] Najma alan height E&M 73.5 [in_i] Najma alan Body Mass Index (Ratio) 36.46 kg/m2 Venessa Salinas MD blood pressure, resting Yes Lucía Naylor blood pressure, diastolic 68 mm[Hg] Jerson Naylor blood pressure, systolic 117 mm[Hg] Germania Naylor oxygen saturation, oximetry 90 % Najma Naylor respiratory rate E&M 20 /min Pamela Naylor pulse rate 71 /min Najma alan weight E&M 280.2 [lb_av] Najma burton height E&M 73.5 [in_i] Najma alan Body Mass Index (Ratio) 37.35 kg/m2 Venessa Salinas MD blood pressure, diastolic 78 mm[Hg] Jerson Naylor blood pressure, systolic 145 mm[Hg] Germania Naylor oxygen saturation, oximetry 98 % Najma Naylor respiratory rate E&M 18 /min Pamela Naylor pulse rate 86 /min Najma alan weight E&M 287 [lb_av] Najma alan height E&M 73.5 [in_i] Najma alan blood pressure, diastolic 73 mm[Hg] In eric Garcia blood pressure, systolic 128 mm[Hg] Chrystal chang Garcia pulse rate 74 /min Emma Garcia oxygen saturation, oximetry 96 % Emma Garcia respiratory rate E&M 17 /min Emma Garcia Body Mass Index (Ratio) 37.35 kg/m2 Anjelica blancas Garcia weight E&M 287 [lb_av] Emma Garcia blood pressure, diastolic 66 mm[Hg] Ke kitty bAraham blood pressure, systolic 126 mm[Hg] Stevie Abraham pulse rate 71 /min Migdalia estevez oxygen saturation, oximetry 92 % Migdalia Abraham respiratory rate E&M 16 /min Migdalia King ginna Body Mass Index (Ratio) 37.09 kg/m2 Shilpi marshall Leigh weight E&M 285 [lb_av] Migdalia Saranyaselene lder blood pressure, diastolic 74 mm[Hg] Me eric Garcia blood pressure, systolic 132 mm[Hg] Chrystal chang Garcia pulse rate 80 /min Emma Garcia oxygen saturation, oximetry 93 % Emma Garcia respiratory rate E&M 16 /min Emma Garcia Body Mass Index (Ratio) 36.31 kg/m2 Anjelica blancas Garcia weight E&M 279 [lb_av] Emma Garcia Body Mass Index (Ratio) 36.83 kg/m2 Dobbins rolando Leigh blood pressure, diastolic 70 mm[Hg] Ke kitty Leigh blood pressure, systolic 120 mm[Hg] Stevie hernández Leigh pulse rate 83 /min Migdalia Estrada lder oxygen saturation, oximetry 91 % Migdalia Leigh respiratory rate E&M 16 /min Migdalia King ginna weight E&M 283 [lb_av] Migdalia Estrada lder blood pressure, diastolic 84 mm[Hg] Kiet Fernandez RN blood pressure, systolic 125 mm[Hg] Kareem Fernandez RN pulse rate 72 /min Kareem Fernandez RN oxygen saturation, oximetry 97 % Kareem Fernandez RN respiratory rate E&M 18 /min Kareem roque RN Body Mass Index (Ratio) 36.70 kg/m2 Kareem Fernandez RN weight E&M 281 [lb_av] Kareem Fernandez RN Body Mass Index (Ratio) 36.31 kg/m2 Shilpi marshall Leigh blood pressure, diastolic 65 mm[Hg] Zack tang Leigh blood pressure, systolic 110 mm[Hg] Stevie hernández Leigh pulse rate 77 /min Migdalia Estrada martiner oxygen saturation, oximetry 96 % Migdalia Leigh respiratory rate E&M 15 /min Migdalia Fernando chacko weight E&M 278 [lb_av] Migdalia Estrada lder blood pressure, diastolic 62 mm[Hg] Kiet Fernandez RN blood pressure, systolic 104 mm[Hg] Kareem Fernandez RN pulse rate 87 /min Kareem Fernandez RN oxygen saturation, oximetry 95 % Kareem Fernandez RN respiratory rate E&M 17 /min Kareem roque RN weight E&M 280 [lb_av] Kareem Fernandez RN height E&M 73.5 [in_i] Kareem Fernandez RN blood pressure, diastolic 70 mm[Hg] Nia levin [place] blood pressure, systolic 120 mm[Hg] Troy liao [place] pulse rate 72 /min [facility]el [facility] oxygen saturation, oximetry 95 % Osmel Keenan respiratory rate E&M 16 /min Osmel Keenan weight E&M 270 [lb_av] Osmel Keenan weight E&M 260 [lb_av] Kareem Jim FOX blood pressure, diastolic 62 mm[Hg] Andres blood pressure, systolic 114 mm[Hg] Lowell Munguia pulse rate 68 /min Jignesh Munguia oxygen saturation, oximetry 95 % Jignesh Munguia respiratory rate E&M 16 /min Jignesh Munguia blood pressure, diastolic 72 mm[Hg] Jerson hauser [place] blood pressure, systolic 135 mm[Hg] Germania farrell [place] pulse rate 73 /min Triny [place] oxygen saturation, oximetry 94 % Triny [place] respiratory rate E&M 18 /min Triny [place] weight E&M 267 [lb_av] Triny [place] blood pressure, diastolic 65 mm[Hg] Jerson hauser [place] blood pressure, systolic 118 mm[Hg] Germania farrell [place] pulse rate 75 /min Triny [place] oxygen saturation, oximetry 94 % Triny [place] respiratory rate E&M 18 /min Triny [place] weight E&M 265 [lb_av] Triny [place] blood pressure, diastolic 57 mm[Hg] Kiet Fernandez RN blood pressure, systolic 108 mm[Hg] Kareem Fernandez RN pulse rate 80 /min Kareem Fernandez RN oxygen saturation, oximetry 95 % Kareem Fernandez RN respiratory rate E&M 20 /min Kareem roque RN weight E&M 257 [lb_av] Kareem Fernandez RN respiratory rate E&M 20 /min Kareem roque RN pulse rate 72 /min Kareem Fernandez RN oxygen saturation, oximetry 96 % Kareem Fernandez RN blood pressure, diastolic 81 mm[Hg] Kiet Fernandez RN blood pressure, systolic 136 mm[Hg] Kareem Fernandez RN weight E&M 254 [lb_av] Kareem Fernandez RN ALLERGIES No Known Drug Allergies RESULTS Date Observation Value Provider Reference Range Interpretation Location prothrombin time (patient) 10.8 s Lucía Brown RN international normalized ratio (INR) 1.1 Lucía Brown RN blood glucose, fasting 87 mg/dL Lucía Brown RN creatinine, serum 1.15 mg/dL Lucía Brown RN urea nitrogen, blood 10.8 mg/dL Lucía Brown RN carbon dioxide, serum, total 27 mmol/L [facility] chloride, serum 102 mmol/L [facility] potassium, serum 4.6 mmol/L [facility] sodium, serum 135 mmol/L [facility] platelet count 159 10*3/uL [facility] hematocrit, blood 46.5 % [facility] hemoglobin, blood 16.2 g/dL [facility] erythrocyte (RBC) count 5.19 10*6/mm3 [facility] leukocyte count, blood 6.7 10*3/mm3 [facility] alanine aminotransferase (SGPT), serum 61 1/L [facility] 9-60 High aspartate aminotransferase (SGOT), serum 56 1/L [facility] 10-35 High cholesterol/HDL ratio, serum, percent 4.1 (calc) [facility] < OR = 5.0 Normal LDL cholesterol, serum 109 MG/DL (CALC) [facility] <130 Normal HDL cholesterol, serum 43 mg/dL [facility] > OR = 40 Normal cholesterol, serum 178 mg/dL [facility] 125-200 Normal triglyceride, serum, fasting 131 mg/dL [facility] <150 Normal alanine aminotransferase (SGPT), serum 41 1/L [facility] aspartate aminotransferase (SGOT), serum 29 1/L [facility] creatinine, serum 0.79 mg/dL [facility] urea nitrogen, blood 12 mg/dL [facility] potassium, serum 4.3 mmol/L [facility] sodium, serum 140 mmol/L [facility] triglyceride, serum, fasting 381 mg/dL [facility] HDL cholesterol, serum 31 mg/dL [facility] LDL cholesterol, serum 69 mg/dL [facility] cholesterol, serum 176 mg/dL [facility] HISTORY OF MEDICATION USE Medication Status Instructions Dates Provider Indications Com ments LIPITOR 20 MG ORAL TABLET active ONE TAB. DAILY Migdalia Abraham MULTIVITAMINS ORAL CAPSULE active ONE TAB. DAILY Migdalia Abraham CLOBETASOL PROPIONATE 0.05 % EXTERNAL CREAM active apply to affected area Seth Lockwood FLUTICASONE PROPIONATE SUSPENSION completed - Migdaliabetty Abraham DORZAL EYE DROPS 0.5% active one drop each eye twice a day Migdalia Abraham TRAVATAN Z SOLUTION completed 1 drop into both eyes twice daily - Migdalia Leigh NASONEX SUSPENSION completed as need - Osmel Keenan PRAVACHOL 40 MG ORAL TABLET completed ONE TAB. DAILY - Eva Turner gemfibrozil 600 mg tablet active TAKE ONE TABLET BY MOUTH TWICE DAILY Gabe Felder TRICOR 145 MG ORAL TABLET completed ONE TAB. DAILY - Alexa Allen IBUPROFEN 800 MG ORAL TABLET active take as directed Gerard Salinas MD NASONEX 50 MCG/ACT NASAL SUSPENSION completed twice daily - Alexa Allen PRAVASTATIN SODIUM 40 MG ORAL TABLET completed ONE TAB. DAILY - Alexa Allen XALATAN 0.005 % OPHTHALMIC SOLUTION completed once daily in left eye - Alexa Allen CELEBREX CAPSULE completed QD - Daniela Rosario MA ASPIRIN 81 MG ORAL TABLET active ONE TAB. DAILY Gerard Salinas MD atenolol 25 mg tablet active TAKE ONE TABLET BY MOUTH EVERY DAY Maggy Buchanan LISINOPRIL 5 MG ORAL TABLET completed ONE TAB. DAILY - Migdalia Abraham ADVICOR 500-20 MG ORAL TABLET EXTENDED RELEASE 24 HOUR completed ONE TAB. AT BEDTIME - Daniela Rosario MA SOCIAL HISTORY Date Observation Value Provider social history E&M Marital Statu s: C hildren: 3 children L teresa with family/friends E thnicity: P atient is a former smoker. Smoking History: P atient is a former smoker. Gerard Salinas MD smoking status Former smoker Gerard Salinas MD social history reviewed E&M revi ewed - no changes required Gerard Salinas MD cigarette use yes Seth Encarnacion ms smoking status Former smoker Seth meier social history E&M Marital Statu s: [facility] hug[facility]: 3 children L teresa with family/friends E thnicity: P atient is a former smoker. Smoking History: P atient is a former smoker. Gerard Salinas MD social history reviewed E&M anastasia ewed - no changes required eGrard Salinas MD physical exercise, f requency, days per week yes Migdalia Abraham alcohol use, average drinks per day 1 /d Migdalia Abraham alcohol use, type beer Migdalia diggs alcohol use no Migdalia estevez caffeine use, averag e drinks per day yes Migdalia Abraham drug use no Migdalia estevez passive cigarette sm albert exposure yes Migdalia Abraham smoking, year quit 1988 Migdalia duron number of years as a smoker 35 a Migdalia Abraham smoking history, tot al pack/year 70 Migdalia Abraham smoking history, tot al pack/day 2 Migdalia Abraham cigarette use yes Migdalia maddox smoking status Former smoker Migdalia lancaster social history E&M Marital Statu s: [facility] huggins: 3 children L teresa with family/friends E thnicity: P atient is a former smoker. Smoking History: P atient is a former smoker. Gerard Salinas MD social history reviewed E&M revi ewed - no changes required Gerard Salinas MD smoking status Former smoker Eva Turner smoking status Former smoker Gearrd Salinas MD social history reviewed E&M revi ewed - no changes required Gerard Salinas MD physical exercise, f requency, days per week yes Najma Naylor alcohol use, average drinks per day 1 /d Najma Naylor alcohol use, type beer Najma Naylor alcohol use no Najma [place] nson caffeine use, averag e drinks per day yes Najma Naylor drug use no Najma [place] vanessaon passive cigarette sm albert exposure yes Najma Naylor smoking, year quit 1988 Najma Naylor number of years as a smoker 35 a Najma Naylor smoking history, tot al pack/year 70 Najma Naylor smoking history, tot al pack/day 2 Najma Naylor cigarette use yes Najma mcleanon social history reviewed E&M revi ewed - no changes required Sapna Perera NP physical exercise, f requency, days per week yes Najma Naylor alcohol use, average drinks per day 1 /d Najma Naylor alcohol use, type beer Najma Naylor alcohol use no Najma [place] vanessaon caffeine use, averag e drinks per day yes Najma Naylor drug use no Najma [place] nson passive cigarette sm albert exposure yes Najma Naylor smoking, year quit 1988 Najma Naylor number of years as a smoker 35 a Najma Naylor smoking history, tot al pack/year 70 Najma De La Fuenteenson smoking history, tot al pack/day 2 Najma De La Fuenteenson cigarette use yes Najma [place] enson smoking status Former smoker Najma Norton social history reviewed E&M revi ewed - no changes required Gerard Salinas MD physical exercise, f requency, days per week yes Najma Naylor alcohol use, average drinks per day 1 /d Najma Naylor alcohol use, type beer Najma Naylor alcohol use no Najma mendezon caffeine use, averag e drinks per day yes Najma Naylor drug use no Najma Ruiz nson passive cigarette sm albert exposure yes Najma Naylor smoking, year quit 1988 Najma Naylor number of years as a smoker 35 a Najma Naylor smoking history, tot al pack/year 70 Najma Naylor smoking history, tot al pack/day 2 Najma Naylor cigarette use yes Najma burton smoking status Former smoker Najma Norton number of grandchildren Gerard Salinas MD U wes Salinas MD social history reviewed E&M revi ewed - no changes required Gerard Salinas MD physical exercise, f requency, days per week yes Emma Jose alcohol use, average drinks per day 1 /d Emma Jose alcohol use, type beer Emma Kanu Castillo alcohol use no Emma Garcia caffeine use, averag e drinks per day yes Emma Jose drug use no Emma Garcia passive cigarette sm albert exposure yes Emma Jose smoking, year quit 1988 Emma Kalina Juarez number of years as a smoker 35 a Emma Garcia smoking history, tot al pack/year 70 Emma Jose smoking history, tot al pack/day 2 Emma Garcia cigarette use yes Emma Jose smoking status Former smoker Emma Gallardo nn social history reviewed E&M revi ewed - no changes required Gerard Salinas MD alcohol use no Migdalia estevez smoking status Former smoker Migdalia Gus lancaster social history reviewed E&M revi ewed - no changes required Gerard Salinas MD physical exercise, f requency, days per week yes Emma Jose alcohol use, average drinks per day 1 /d Emma Garcia alcohol use, type beer Emma Bobby Anan alcohol use yes Emma Garcia caffeine use, averag e drinks per day yes Emma Garcia drug use no Emma Garcia passive cigarette sm albert exposure yes Emma Jose smoking/tobacco cess ation, patient education and counseling yes Emma Jose smoking, year quit 1988 Emma Walker Larry number of years as a smoker 35 a Emma Garcia smoking history, tot al pack/year 70 Emma Jose smoking history, tot al pack/day 2 Emma Jose cigarette use yes Emma Garcia smoking status Former smoker Emma Paulina hernandez smoking/tobacco cess ation, patient education and counseling yes Gerard Salinas MD social history reviewed E&M revi ewed - no changes required Gerard Salinas MD social history E&M Marital Statu s: C hildren: 3 children L teresa with family/friends E thnicity: P attony is a former smoker. Smoking History: P attony is a former smoker. Gerard Salinas MD alcohol use, average drinks per day 1 /d Migdalia Abraham alcohol use yes Migdalia estevez number of years as a smoker 37 a Migdalia Abraham smoking history, tot al pack/day 2 Migdalia Leigh cigarette use yes Migdalia Gusjohn tan smoking status Former smoker Gerard Salinas MD social history reviewed E&M reviewed Kareem Fernandez RN social history reviewed E&M reviewed Gerard Salinas MD passive cigarette sm albert exposure yes Migdalia Abraham alcohol use, type beer Kareem Fernandez RN smoking history, tot al pack/year 70 Kareem Fernandez RN smoking, year quit 1988 Kareem puentes RN drug use no Kareem Fernandez RN passive cigarette sm albert exposure no Kareem Fernandez RN social history reviewed E&M reviewed Kareem Fernandez RN smoking status former smoker Kareem Merino social history reviewed E&M reviewed Kareem Fernandez RN smoking/tobacco cess ation, patient education and counseling yes Ross Geronimo MD social history reviewed E&M reviewed Kareem Fernandez RN social history reviewed E&M reviewed Kareem Fernandez RN social history reviewed E&M reviewed Gerard Salinas MD social history reviewed E&M reviewed Kareem Fernandez RN number of children 3 children SETH HANSEN NP social history E&M Marital Statu s: C hildren: 3 children L teresa with family/friends E thnicity: SETH JOHNSTON NP drug use none CRYSTAL JENNIFERSENMARU K [employer] social history reviewed E&M reviewed SETH JOHNSTON NP physical exercise, f requency, days per week yes [facility] caffeine use, averag e drinks per day yes [facility] alcohol use, average drinks per day 1-3 drinks per day [facility] number of years as a smoker 10 years or m ore [facility] smoking status Quit [facility] FUNCTIONAL STATUS Date Observation Value Provider HRA, CV Assess/Plan, Angina (inactive) Management Plan continue current therapy Gerard Salinas MD HRA, CV Assess/Plan, Angina (inactive) Management Plan continue current therapy Gerard Salinas MD HRA, CV Assess/Plan, Angina (inactive) Management Plan continue current therapy Sapna Perera NP HRA, CV Assess/Plan, Angina (inactive) Management Plan continue current therapy Gerard Salinas MD HRA, CV Assess/Plan, Angina (inactive) Management Plan continue current therapy Gerard Salinas MD MENTAL STATUS Date Observation Value Provider assessment of judgme nt and insight E&M Alert and oriented to time, place and person. Mood and affect are normal. Kareem Fernandez RN assessment of judgme nt and insight E&M Alert and oriented to time, place and person. Mood and affect are normal. Gerard Salinas MD assessment of judgme nt and insight E&M Alert and oriented to time, place and person. Mood and affect are normal. Kareem Fernandez RN assessment of judgme nt and insight E&M Alert and oriented to time, place and person. Mood and affect are normal. Kareem Fernandez RN assessment of judgme nt and insight E&M Alert and oriented to time, place and person. Mood and affect are normal. Kareem Fernandez RN assessment of judgme nt and insight E&M Alert and oriented to time, place and person. Mood and affect are normal. Kareem Fernandez RN assessment of judgme nt and insight E&M Alert and oriented to time, place and person. Mood and affect are normal. Gerard Salinas MD assessment of judgme nt and insight E&M Alert and oriented to time, place and person. Mood and affect are normal. Kareem Fernandez RN assessment of judgme nt and insight E&M Alert and oriented to time, place and person. Mood and affect are normal. Kareem Fernandez RN FAMILY HISTORY Family Member Condition Mother Family History of Hy pertension: Mother Family History of Co ngestive Heart Failure: Father Family History Unkno wn Mother Family History of Hy pertension: INSURANCE PROVIDERS Payer name Policy type / Coverage type [employer] ID [employer] Other [id number] ADVANCE DIRECTIVES Name Date DISCUSSED - NO DECISION MADE TREATMENT PLAN Date Name Performer Cardiology Follow up Gerard morales MD Cardiology Follow up : H is updated medication list for this problem includes: Aspirin 81 Mg Oral Tablet (Aspirin) ..... One tab. daily Atenolol 25mg* Tab Teva (Atenolol) ..... Take one tablet by mouth every day Gerard Salinas MD Cardiology Follow up : H is updated medication list for this problem includes: Lipitor 20 Mg Oral Tablet (Atorvastatin calcium) ..... One tab. daily Gemfibrozil 600 Mg* Tab Cipl (Gemfibrozil) ..... Take one tablet by mouth twice daily Gerard Salinas MD Cardiology Follow up :Stable, co ntinue medical therapy Gerard Salinas MD Cardiology: B P today: 130/70 P rior BP: 120/80 (03/25/2018) Labs Reviewed: C reat: 1.15 (10/22/2010) C hol: 178 (04/26/2008) HDL: 43 (04/26/2008) LDL: 109 MG/DL (CALC) (04/26/2008) T (04/26/2008) Gerard Salinas MD Cardiology Gerard Salinas MD Cardiology:Most like ly will repeat stress test and see if there are any new abnormalities. Will also repeat echo to see if LV function is maintained. Gerard Salinas MD Cardiology:He is unable to josé miguel ate CPAP. Gerard Salinas MD Cardiology Follow up :Has been off Lisinopril and BP is stable. He is no longer having dizzy spells. B P today: 120/80 P rior BP: 119/70 (01/21/2018) Labs Reviewed: C reat: 1.15 (10/22/2010) C hol: 178 (04/26/2008) HDL: 43 (04/26/2008) LDL: 109 MG/DL (CALC) (04/26/2008) T (04/26/2008) Gerard Salinas MD Cardiology Follow up :per Dr. Juan Daniel Salinas MD Cardiology Follow up Gerard walker MD Cardiology Follow up Gerard walker MD Cardiology - seen [facility] Sapna and HS: T he following medications were removed from the medication list: Pravachol 40 Mg Oral Tablet (Pravastatin sodium) ..... One tab. daily His updated medication list for this problem includes: Gemfibrozil 600 Mg Oral Tablet (Gemfibrozil) ..... One tab twice daily Gerard Salinas MD Cardiology - seen [facility] Sapna and HS:No chest pains. Stable. C christine asa. Gerard Salinas MD Cardiology - seen [facility] Sapna and HS:Will discontinue Lisinopril. Gerard Salinas MD Cardiology - seen [facility] Sapna and HS: B P today: 119/70 P rior BP: 142/81 (07/23/2017) Labs Reviewed: C reat: 1.15 (10/22/2010) C hol: 178 (04/26/2008) HDL: 43 (04/26/2008) LDL: 109 MG/DL (CALC) (04/26/2008) T (04/26/2008) Gerard Salinas MD Cardiology - seen with Sapna farah HS Gerard Salinas MD Cardiology - seen [facility] Sapna and HS:Severe on 2016 sleep study. N ot on CPAP Gerard Salinas MD Cardiology:EF 35% on 2016 stress test. S hortness of breath has not worsened since last visit. [facility] current meds. W ill repeat echo in 6 months. His updated medication list for this problem includes: Lisinopril 5 Mg Oral Tablet (Lisinopril) ..... One tab. daily Aspirin 81 Mg Oral Tablet (Aspirin) ..... One tab. daily Atenolol 25 Mg Oral Tablet (Atenolol) ..... One tab. daily Gerard Salinas MD Cardiology:No chest pains. Stable. C ontinue asa. Gerard Salinas MD Cardiology:Dizziness and neck pain occurring over past few months. W ill check carotid us. Gerard Salinas MD Cardiology: B P today: 142/81 P rior BP: 117/68 (01/30/2017) Labs Reviewed: C reat: 1.15 (10/22/2010) C hol: 178 (04/26/2008) HDL: 43 (04/26/2008) LDL: 109 MG/DL (CALC) (04/26/2008) T (04/26/2008) Gerard Salinas MD Cardiology Gerard Salinas MD Cardiology:Severe on 2015 sleep study. N ot on CPAP Gerard Salinas MD Cardiology: H is updated medication list for this problem includes: Gemfibrozil 600 Mg Oral Tablet (Gemfibrozil) ..... One tab twice daily Pravachol 40 Mg Oral Tablet (Pravastatin sodium) ..... One tab. daily Gerard Salinas MD Cardiology Sapna Merino P Cardiology:Not on CPAP Sapna romero NP Cardiology: B P today: 117/68 P rior BP: 145/78 (07/11/2016) Labs Reviewed: C reat: 1.15 (10/22/2010) C hol: 178 (04/26/2008) HDL: 43 (04/26/2008) LDL: 109 MG/DL (CALC) (04/26/2008) T (04/26/2008) Sapna Perera [employer] Cardiology Gerard Salinas MD Cardiology Gerard Salinas MD Cardiology:Stable. F ixed defect on stress test. His updated medication list for this problem includes: Lisinopril 5 Mg Tabs (Lisinopril) ..... One tab. daily Aspirin 81 Mg Tabs (Aspirin) ..... One tab. daily Atenolol 25 Mg Tabs (Atenolol) ..... One tab. daily Gerard Salinas MD Cardiology:sleep kristopher dy showed severe sleep apnea. Will set him up for a titration study. Gerard Salinas MD Cardiology Gerard Salinas MD Cardiology Gerard Salinas MD Cardiology Gerard Salinas MD Cardiology:128/73 Gerard Farah Cardiology:Will chec k adenosine stress test. Jeffrey also check a sleep test as he has fatigue upon waking up and body habitus of someone with sleep apnea. Gerard Salinas MD Cardiology Follow up : B P today: 126/66 P rior BP: 132/74 (11/16/2014) Gerard Salinas MD Cardiology Follow up :37 year sm oking history Gerard Salinas MD Cardiology Follow up :Mild diffusion defect N o obstructive airway disease per PFT (11/30/2014) Gerard Salinas MD Cardiology Follow up :EF 50% per TTE (05/18/2014) Gerard Salinas MD Follow up Gerard Salinas MD Follow up Gerard Salinas MD : H is updated medication list for this problem includes: Lisinopril 10 Mg Tabs (Lisinopril) ..... One tab. daily Aspirin 81 Mg Tabs (Aspirin) ..... One tab. daily Atenolol 25 Mg Tabs (Atenolol) ..... One tab. daily Orders: F ull PFT (*) C omplete Echo (CPT-32083) Gerard Salinas MD : H is updated medication list for this problem includes: Gemfibrozil 600 Mg Tabs (Gemfibrozil) ..... One tab twice daily Pravachol 40 Mg Tabs (Pravastatin sodium) ..... One tab. daily Lisinopril 10 Mg Tabs (Lisinopril) ..... One tab. daily Aspirin 81 Mg Tabs (Aspirin) ..... One tab. daily Atenolol 25 Mg Tabs (Atenolol) ..... One tab. daily BP today: 125/84 Prior BP: 110/65 (05/12/2013) N uclear Stress Findings: 1. Regadenoson mediated myocardial perfusion study 2 . Normal left ventricular size with reduced systolic function with a calculated ejection fraction of 49%. 3 . There is a large fixed defect involving the inferolateral wall consistent with scar tissue. (09/11/2010) C ardiac Cath: Elevated left ventricular end diastolic pressure. 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 Nonobstructive coronary artery disease with a patent stent in the right coronary artery. EF 40% . [facility] (10/31/2010) C arotid Doppler/Duplex: Normal carotid duplex examination. Vertebral flow is antegrade bilaterally. (12/02/2010) C HOL: 178 (04/26/2008) LDL: 109 MG/DL (CALC) (04/26/2008) HDL: 43 (04/26/2008) T (04/26/2008) H gb: 16.2 (10/22/2010) HCT: 46.5 (10/22/2010) RBC: 5.19 (10/22/2010) WBC: 6.7 (10/22/2010) B UN: 10.8 (10/22/2010) Creat: 1.15 (10/22/2010) Glucose: 87 (10/22/2010) N a+: 135 (10/22/2010) K+: 4.6 (10/22/2010) Cl: 102 (10/22/2010) PT: 10.8 (10/22/2010) INR: 1.1 (10/22/2010) Gerard Salinas MD : H is updated medication list for this problem includes: Gemfibrozil 600 Mg Tabs (Gemfibrozil) ..... One tab twice daily Pravachol 40 Mg Tabs (Pravastatin sodium) ..... One tab. daily B P today: 125/84 Prior BP: 110/65 (05/12/2013) C HOL: 178 (04/26/2008) LDL: 109 MG/DL (CALC) (04/26/2008) HDL: 43 (04/26/2008) T (04/26/2008) Gerard Salinas MD : H is updated medication list for this problem includes: Lisinopril 10 Mg Tabs (Lisinopril) ..... One tab. daily Aspirin 81 Mg Tabs (Aspirin) ..... One tab. daily Atenolol 25 Mg Tabs (Atenolol) ..... One tab. daily BP today: 125/84 Prior BP: 110/65 (05/12/2013) N uclear Stress Findings: 1. Regadenoson mediated myocardial perfusion study 2 . Normal left ventricular size with reduced systolic function with a calculated ejection fraction of 49%. 3 . There is a large fixed defect involving the inferolateral wall consistent with scar tissue. (09/11/2010) C ardiac Cath: Elevated left ventricular end diastolic pressure. 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 Nonobstructive coronary artery disease with a patent stent in the right coronary artery. EF 40% . [facility] (10/31/2010) C arotid Doppler/Duplex: Normal carotid duplex examination. Vertebral flow is antegrade bilaterally. (12/02/2010) C HOL: 178 (04/26/2008) LDL: 109 MG/DL (CALC) (04/26/2008) HDL: 43 (04/26/2008) T (04/26/2008) H gb: 16.2 (10/22/2010) HCT: 46.5 (10/22/2010) RBC: 5.19 (10/22/2010) WBC: 6.7 (10/22/2010) B UN: 10.8 (10/22/2010) Creat: 1.15 (10/22/2010) Glucose: 87 (10/22/2010) N a+: 135 (10/22/2010) K+: 4.6 (10/22/2010) Cl: 102 (10/22/2010) PT: 10.8 (10/22/2010) INR: 1.1 (10/22/2010) Gerard Salinas MD : H is updated medication list for this problem includes: Lisinopril 10 Mg Tabs (Lisinopril) ..... One tab. daily Aspirin 81 Mg Tabs (Aspirin) ..... One tab. daily Atenolol 25 Mg Tabs (Atenolol) ..... One tab. daily BP today: 125/84 P rior BP: 110/65 (05/12/2013) Labs Reviewed: C reat: 1.15 (10/22/2010) C hol: 178 (04/26/2008) HDL: 43 (04/26/2008) LDL: 109 MG/DL (CALC) (04/26/2008) T (04/26/2008) Gerard Salinas MD Follow up: O rders: Selene KG (CPT-32747) Gerard Salinas MD Follow up: H is updated medication list for this problem includes: Gemfibrozil 600 Mg Tabs (Gemfibrozil) ..... One tab twice daily Pravachol 40 Mg Tabs (Pravastatin sodium) ..... One tab. daily Lisinopril 10 Mg Tabs (Lisinopril) ..... One tab. daily Aspirin 81 Mg Tabs (Aspirin) ..... One tab. daily Atenolol 25 Mg Tabs (Atenolol) ..... One tab. daily Gerard Salinas MD Follow up: H is updated medication list for this problem includes: Gemfibrozil 600 Mg Tabs (Gemfibrozil) ..... One tab twice daily Pravachol 40 Mg Tabs (Pravastatin sodium) ..... One tab. daily Gerard Salinas MD Follow up:110/65 H is updated medication list for this problem includes: Lisinopril 10 Mg Tabs (Lisinopril) ..... One tab. daily Aspirin 81 Mg Tabs (Aspirin) ..... One tab. daily Atenolol 25 Mg Tabs (Atenolol) ..... One tab. daily Gerard Salinas MD 6 month follow-up: H is updated medication list for this problem includes: Gemfibrozil 600 Mg Tabs (Gemfibrozil) ..... One tab twice daily Pravachol 40 Mg Tabs (Pravastatin sodium) ..... One tab. daily Lisinopril 10 Mg Tabs (Lisinopril) ..... One tab. daily Aspirin 81 Mg Tabs (Aspirin) ..... One tab. daily Atenolol 25 Mg Tabs (Atenolol) ..... One tab. daily BP today: 120/70 Prior BP: 114/62 (12/13/2010) N uclear Stress Findings: 1. Regadenoson mediated myocardial perfusion study 2 . Normal left ventricular size with reduced systolic function with a calculated ejection fraction of 49%. 3 . There is a large fixed defect involving the inferolateral wall consistent with scar tissue. (09/11/2010) C ardiac Cath: Elevated left ventricular end diastolic pressure. 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 Nonobstructive coronary artery disease with a patent stent in the right coronary artery. EF 40% . [facility] (10/31/2010) C arotid Doppler/Duplex: Normal carotid duplex examination. Vertebral flow is antegrade bilaterally. (12/02/2010) C HOL: 178 (04/26/2008) LDL: 109 MG/DL (CALC) (04/26/2008) HDL: 43 (04/26/2008) T (04/26/2008) H gb: 16.2 (10/22/2010) HCT: 46.5 (10/22/2010) RBC: 5.19 (10/22/2010) WBC: 6.7 (10/22/2010) B UN: 10.8 (10/22/2010) Creat: 1.15 (10/22/2010) Glucose: 87 (10/22/2010) N a+: 135 (10/22/2010) K+: 4.6 (10/22/2010) Cl: 102 (10/22/2010) PT: 10.8 (10/22/2010) INR: 1.1 (10/22/2010) Orders: E KG (CPT-99680) Gerard Salinas MD 6 month follow-up: H is updated medication list for this problem includes: Gemfibrozil 600 Mg Tabs (Gemfibrozil) ..... One tab twice daily Pravachol 40 Mg Tabs (Pravastatin sodium) ..... One tab. daily BP today: 120/70 Prior BP: 114/62 (12/13/2010) C HOL: 178 (04/26/2008) LDL: 109 MG/DL (CALC) (04/26/2008) HDL: 43 (04/26/2008) T (04/26/2008) Gerard Salinas MD 6 month follow-up Gerard Farah 6 month follow-up: H is updated medication list for this problem includes: Lisinopril 10 Mg Tabs (Lisinopril) ..... One tab. daily Aspirin 81 Mg Tabs (Aspirin) ..... One tab. daily Atenolol 25 Mg Tabs (Atenolol) ..... One tab. daily BP today: 120/70 P rior BP: 114/62 (12/13/2010) Labs Reviewed: C reat: 1.15 (10/22/2010) C hol: 178 (04/26/2008) HDL: 43 (04/26/2008) LDL: 109 MG/DL (CALC) (04/26/2008) T (04/26/2008) Gerard Salinas MD 6 month follow-up:wi ll increase his lisinopril to 10 mg H is updated medication list for this problem includes: Lisinopril 10 Mg Tabs (Lisinopril) ..... One tab. daily Aspirin 81 Mg Tabs (Aspirin) ..... One tab. daily Atenolol 25 Mg Tabs (Atenolol) ..... One tab. daily BP today: 120/70 Prior BP: 114/62 (12/13/2010) N uclear Stress Findings: 1. Regadenoson mediated myocardial perfusion study 2 . Normal left ventricular size with reduced systolic function with a calculated ejection fraction of 49%. 3 . There is a large fixed defect involving the inferolateral wall consistent with scar tissue. GC (09/11/2010) C ardiac Cath: Elevated left ventricular end diastolic pressure. 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 Nonobstructive coronary artery disease with a patent stent in the right coronary artery. EF 40% . [facility] (10/31/2010) C arotid Doppler/Duplex: Normal carotid duplex examination. Vertebral flow is antegrade bilaterally. (12/02/2010) C HOL: 178 (04/26/2008) LDL: 109 MG/DL (CALC) (04/26/2008) HDL: 43 (04/26/2008) T (04/26/2008) H gb: 16.2 (10/22/2010) HCT: 46.5 (10/22/2010) RBC: 5.19 (10/22/2010) WBC: 6.7 (10/22/2010) B UN: 10.8 (10/22/2010) Creat: 1.15 (10/22/2010) Glucose: 87 (10/22/2010) N a+: 135 (10/22/2010) K+: 4.6 (10/22/2010) Cl: 102 (10/22/2010) PT: 10.8 (10/22/2010) INR: 1.1 (10/22/2010) Orders: C omplete Echo (CPT-41496) Gerard Salinas MD cath f/u: H is updated medication list for this problem includes: Lisinopril 5 Mg Tabs (Lisinopril) ..... One tab. daily Aspirin 81 Mg Tabs (Aspirin) ..... One tab. daily Atenolol 25 Mg Tabs (Atenolol) ..... One tab. daily BP today: 135/72 Prior BP: 118/65 (10/03/2010) N uclear Stress Findings: 1. Regadenoson mediated myocardial perfusion study 2 . Normal left ventricular size with reduced systolic function with a calculated ejection fraction of 49%. 3 . There is a large fixed defect involving the inferolateral wall consistent with scar tissue. (09/11/2010) C ardiac Cath: Elevated left ventricular end diastolic pressure. 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 Nonobstructive coronary artery disease with a patent stent in the right coronary artery. EF 40% . [facility] (10/31/2010) C HOL: 178 (04/26/2008) LDL: 109 MG/DL (CALC) (04/26/2008) HDL: 43 (04/26/2008) T (04/26/2008) H gb: 16.2 (10/22/2010) HCT: 46.5 (10/22/2010) RBC: 5.19 (10/22/2010) WBC: 6.7 (10/22/2010) B UN: 10.8 (10/22/2010) Creat: 1.15 (10/22/2010) Glucose: 87 (10/22/2010) N a+: 135 (10/22/2010) K+: 4.6 (10/22/2010) Cl: 102 (10/22/2010) PT: 10.8 (10/22/2010) INR: 1.1 (10/22/2010) E chocardiogram: Technical difficult study. Suboptimal exam.The left ventricular chamber size is normal. Normal left ventricular wall thickness.Normal left ventricular function. There is E: A reversal of mitral inflow velocities consistent with diastolic dysfunction. LV EF is estimated at 50%. The mitral valve leaflets appear (sclerotic) thickened. There is mild aortic valve calcification. The tricuspid valve is structurally normal. Minimal mitral regurgitation. N o evidence of aortic valve regurgitation. Minimal tricuspid regurgitation. No evidence of pulmonic valve regurgitation. (03/30/2008) Gerard Salinas MD cath f/u: H is updated medication list for this problem includes: Gemfibrozil 600 Mg Tabs (Gemfibrozil) ..... One tab twice daily Pravachol 40 Mg Tabs (Pravastatin sodium) ..... One tab. daily Lisinopril 5 Mg Tabs (Lisinopril) ..... One tab. daily Aspirin 81 Mg Tabs (Aspirin) ..... One tab. daily Atenolol 25 Mg Tabs (Atenolol) ..... One tab. daily BP today: 135/72 Prior BP: 118/65 (10/03/2010) N uclear Stress Findings: 1. Regadenoson mediated myocardial perfusion study 2 . Normal left ventricular size with reduced systolic function with a calculated ejection fraction of 49%. 3 . There is a large fixed defect involving the inferolateral wall consistent with scar tissue. (09/11/2010) C ardiac Cath: Elevated left ventricular end diastolic pressure. 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 Nonobstructive coronary artery disease with a patent stent in the right coronary artery. EF 40% . [facility] (10/31/2010) C HOL: 178 (04/26/2008) LDL: 109 MG/DL (CALC) (04/26/2008) HDL: 43 (04/26/2008) T (04/26/2008) H gb: 16.2 (10/22/2010) HCT: 46.5 (10/22/2010) RBC: 5.19 (10/22/2010) WBC: 6.7 (10/22/2010) B UN: 10.8 (10/22/2010) Creat: 1.15 (10/22/2010) Glucose: 87 (10/22/2010) N a+: 135 (10/22/2010) K+: 4.6 (10/22/2010) Cl: 102 (10/22/2010) PT: 10.8 (10/22/2010) INR: 1.1 (10/22/2010) Gerard Salinas MD cath f/u: H is updated medication list for this problem includes: Gemfibrozil 600 Mg Tabs (Gemfibrozil) ..... One tab twice daily Pravachol 40 Mg Tabs (Pravastatin sodium) ..... One tab. daily BP today: 135/72 Prior BP: 118/65 (10/03/2010) C HOL: 178 (04/26/2008) LDL: 109 MG/DL (CALC) (04/26/2008) HDL: 43 (04/26/2008) T (04/26/2008) Gerard Salinas MD cath f/u Gerard Salinas MD cath f/u: H is updated medication list for this problem includes: Gemfibrozil 600 Mg Tabs (Gemfibrozil) ..... One tab twice daily Pravachol 40 Mg Tabs (Pravastatin sodium) ..... One tab. daily Lisinopril 5 Mg Tabs (Lisinopril) ..... One tab. daily Aspirin 81 Mg Tabs (Aspirin) ..... One tab. daily Atenolol 25 Mg Tabs (Atenolol) ..... One tab. daily BP today: 135/72 Prior BP: 118/65 (10/03/2010) N uclear Stress Findings: 1. Regadenoson mediated myocardial perfusion study 2 . Normal left ventricular size with reduced systolic function with a calculated ejection fraction of 49%. 3 . There is a large fixed defect involving the inferolateral wall consistent with scar tissue. (09/11/2010) C ardiac Cath: Elevated left ventricular end diastolic pressure. 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 Nonobstructive coronary artery disease with a patent stent in the right coronary artery. EF 40% . [facility] (10/31/2010) C HOL: 178 (04/26/2008) LDL: 109 MG/DL (CALC) (04/26/2008) HDL: 43 (04/26/2008) T (04/26/2008) H gb: 16.2 (10/22/2010) HCT: 46.5 (10/22/2010) RBC: 5.19 (10/22/2010) WBC: 6.7 (10/22/2010) B UN: 10.8 (10/22/2010) Creat: 1.15 (10/22/2010) Glucose: 87 (10/22/2010) N a+: 135 (10/22/2010) K+: 4.6 (10/22/2010) Cl: 102 (10/22/2010) PT: 10.8 (10/22/2010) INR: 1.1 (10/22/2010) Gerard Salinas MD follow up: H is updated medication list for this problem includes: Gemfibrozil 600 Mg Tabs (Gemfibrozil) ..... One tab twice daily Pravachol 40 Mg Tabs (Pravastatin sodium) ..... One tab. daily Lisinopril 5 Mg Tabs (Lisinopril) ..... One tab. daily Aspirin 81 Mg Tabs (Aspirin) ..... One tab. daily Atenolol 25 Mg Tabs (Atenolol) ..... One tab. daily Orders: C omplete Echo (CPT-03402) A rterial Duplex Lower Extremity Bilateral (CPT-84229) C arotid Duplex Bilateral (CPT-89633) Gerard Salinas MD follow up: H is updated medication list for this problem includes: Gemfibrozil 600 Mg Tabs (Gemfibrozil) ..... One tab twice daily Pravachol 40 Mg Tabs (Pravastatin sodium) ..... One tab. daily P lease adjust cholesterol medication to keep LDL less than 70 and HDL greater than 50 Gerard Salinas MD follow up: H is updated medication list for this problem includes: Gemfibrozil 600 Mg Tabs (Gemfibrozil) ..... One tab twice daily Pravachol 40 Mg Tabs (Pravastatin sodium) ..... One tab. daily Lisinopril 5 Mg Tabs (Lisinopril) ..... One tab. daily Aspirin 81 Mg Tabs (Aspirin) ..... One tab. daily Atenolol 25 Mg Tabs (Atenolol) ..... One tab. daily w ith a fixed defect and some chest discomfort will rx a card cath O rders: [facility] Cath - GC (*) Gerard Salinas MD office visit: H is updated medication list for this problem includes: Lisinopril 5 Mg Tabs (Lisinopril) ..... One tab. daily Atenolol 25 Mg Tabs (Atenolol) ..... One tab. daily Aspirin 81 Mg Tabs (Aspirin) ..... One tab. daily Pravastatin Sodium 40 Mg Tabs (Pravastatin sodium) ..... One tab. daily BP today: 108/57 Prior BP: 136/81 (03/17/2008) N uclear Stress Findings: 1. Moderately impaired exercise capacity 2 . Normal hemodynamic response to exercise 3 . No diagnostic ST or T changes 4 . No significant arrhythmias 5 . There is no evidence for exercise-induced myocardial ischemia 6 . Submaximal exercise 7 .Large fixed anterolateral wall defect consistent with infarct, small partially reversible anterior wall defect consistent with ischemia 8 . LVEF of 47% (03/30/2008) C ardiac Cath: Continued successful results of RCA stent. Left ventricular systolic dysfunction. EF 45%. (05/19/2004) C HOL: 176 (03/17/2008) LDL: 69 (03/17/2008) HDL: 31 (03/17/2008) T (03/17/2008) B UN: 12 (03/17/2008) Creat: 0.79 (03/17/2008) Na+: 140 (03/17/2008) K+: 4.3 (03/17/2008) Gerard Salinas MD office visit: H is updated medication list for this problem includes: Lisinopril 5 Mg Tabs (Lisinopril) ..... One tab. daily Atenolol 25 Mg Tabs (Atenolol) ..... One tab. daily Aspirin 81 Mg Tabs (Aspirin) ..... One tab. daily BP today: 108/57 Prior BP: 136/81 (03/17/2008) N uclear Stress Findings: 1. Moderately impaired exercise capacity 2 . Normal hemodynamic response to exercise 3 . No diagnostic ST or T changes 4 . No significant arrhythmias 5 . There is no evidence for exercise-induced myocardial ischemia 6 . Submaximal exercise 7 .Large fixed anterolateral wall defect consistent with infarct, small partially reversible anterior wall defect consistent with ischemia 8 . LVEF of 47% (03/30/2008) C ardiac Cath: Continued successful results of RCA stent. Left ventricular systolic dysfunction. EF 45%. (05/19/2004) C HOL: 176 (03/17/2008) LDL: 69 (03/17/2008) HDL: 31 (03/17/2008) T (03/17/2008) B UN: 12 (03/17/2008) Creat: 0.79 (03/17/2008) Na+: 140 (03/17/2008) K+: 4.3 (03/17/2008) Echocardiogram: Technical difficult study. Suboptimal exam.The left ventricular chamber size is normal. Normal left ventricular wall thickness.Normal left ventricular function. There is E: A reversal of mitral inflow velocities consistent with diastolic dysfunction. LV EF is estimated at 50%. The mitral valve leaflets appear (sclerotic) thickened. There is mild aortic valve calcification. The tricuspid valve is structurally normal. Minimal mitral regurgitation. N o evidence of aortic valve regurgitation. Minimal tricuspid regurgitation. No evidence of pulmonic valve regurgitation. (03/30/2008) Gerard Salinas MD office visit: H is updated medication list for this problem includes: Pravastatin Sodium 40 Mg Tabs (Pravastatin sodium) ..... One tab. daily BP today: 108/57 Prior BP: 136/81 (03/17/2008) C HOL: 176 (03/17/2008) LDL: 69 (03/17/2008) HDL: 31 (03/17/2008) T (03/17/2008) Gerard Salinas MD office visit: B P today: 136/81 Prior BP: / () C ardiac Cath: Continued successful results of RCA stent. Left ventricular systolic dysfunction. EF 45%. (05/19/2004) Orders: C omplete Echo (CPT-47213) S tress Test - Nuclear (61454) S tress Test - Routine (CPT-29396) S chedule Followup (*) B ASIC METABOLIC PANEL W/EGFR (88107) H EPATIC FUNCTION PANEL (87094) SETH JOHNSTON NP office visit: H is updated medication list for this problem includes: Pravastatin Sodium 40 Mg Tabs (Pravastatin sodium) ..... One tab. daily BP today: 136/81 Prior BP: / () C ardiac Cath: Continued successful results of RCA stent. Left ventricular systolic dysfunction. EF 45%. (05/19/2004) Orders: C omplete Echo (CPT-86494) S tress Test - Nuclear (22848) S tress Test - Routine (CPT-01415) S chedule Followup (*) L IPID PANEL (7600) B ASIC METABOLIC PANEL W/EGFR (41658) H EPATIC FUNCTION PANEL (91620) SETH JOHNSTON NP office visit: H is updated medication list for this problem includes: Lisinopril 5 Mg Tabs (Lisinopril) ..... One tab. daily Atenolol 25 Mg Tabs (Atenolol) ..... One tab. daily Aspirin 81 Mg Tabs (Aspirin) ..... One tab. daily BP today: 136/81 Prior BP: / () C ardiac Cath: Continued successful results of RCA stent. Left ventricular systolic dysfunction. EF 45%. (05/19/2004) Orders: C omplete Echo (CPT-83361) S tress Test - Nuclear (92929) S tress Test - Routine (CPT-11946) S chedule Followup (*) B ASIC METABOLIC PANEL W/EGFR (04627) H EPATIC FUNCTION PANEL (35190) SETH JOHNSTON NP office visit: H is updated medication list for this problem includes: Lisinopril 5 Mg Tabs (Lisinopril) ..... One tab. daily Atenolol 25 Mg Tabs (Atenolol) ..... One tab. daily Aspirin 81 Mg Tabs (Aspirin) ..... One tab. daily Pravastatin Sodium 40 Mg Tabs (Pravastatin sodium) ..... One tab. daily BP today: 136/81 Prior BP: / () Orders: C omplete Echo (CPT-32179) S tress Test - Nuclear (27925) S tress Test - Routine (CPT-85551) S chedule Followup (*) B ASIC METABOLIC PANEL W/EGFR (52263) H EPATIC FUNCTION PANEL (05984) BP today: 136/81 Prior BP: / () C ardiac Cath: Continued successful results of RCA stent. Left ventricular systolic dysfunction. EF 45%. (05/19/2004) SETH JOHNSTON NP office visit: H is updated medication list for this problem includes: Lisinopril 5 Mg Tabs (Lisinopril) ..... One tab. daily Atenolol 25 Mg Tabs (Atenolol) ..... One tab. daily Aspirin 81 Mg Tabs (Aspirin) ..... One tab. daily Pravastatin Sodium 40 Mg Tabs (Pravastatin sodium) ..... One tab. daily Orders: E KG (CPT-50603) C omplete Echo (CPT-38755) S tress Test - Nuclear (44107) S tress Test - Routine (CPT-05730) S chedule Followup (*) L IPID PANEL (7600) B ASIC METABOLIC PANEL W/EGFR (58344) H EPATIC FUNCTION PANEL (70962) BP today: 136/81 Prior BP: / () C ardiac Cath: Continued successful results of RCA stent. Left ventricular systolic dysfunction. EF 45%. (05/19/2004) SETH PEACESARAH MCCAULEY office visit: B P today: 136/81 Prior BP: / () C ardiac Cath: Continued successful results of RCA stent. Left ventricular systolic dysfunction. EF 45%. (05/19/2004) Orders: C omplete Echo (CPT-06355) S tress Test - Nuclear (95109) S tress Test - Routine (CPT-39640) S chedule Followup (*) SETH KOBISARAH MCCAULEY office visit: H is updated medication list for this problem includes: Pravastatin Sodium 40 Mg Tabs (Pravastatin sodium) ..... One tab. daily BP today: 136/81 Prior BP: / () C ardiac Cath: Continued successful results of RCA stent. Left ventricular systolic dysfunction. EF 45%. (05/19/2004) Orders: C omplete Echo (CPT-49589) S tress Test - Nuclear (28874) S tress Test - Routine (CPT-11037) S chedule Followup (*) SETH KOBISARAH MCCAULEY office visit: H is updated medication list for this problem includes: Lisinopril 5 Mg Tabs (Lisinopril) ..... One tab. daily Atenolol 25 Mg Tabs (Atenolol) ..... One tab. daily Aspirin 81 Mg Tabs (Aspirin) ..... One tab. daily BP today: 136/81 Prior BP: / () C ardiac Cath: Continued successful results of RCA stent. Left ventricular systolic dysfunction. EF 45%. (05/19/2004) Orders: C omplete Echo (CPT-77272) S tress Test - Nuclear (74466) S tress Test - Routine (CPT-62019) S chedule Followup (*) SETH PEACESARAH MCCAULEY office visit: H is updated medication list for this problem includes: Lisinopril 5 Mg Tabs (Lisinopril) ..... One tab. daily Atenolol 25 Mg Tabs (Atenolol) ..... One tab. daily Aspirin 81 Mg Tabs (Aspirin) ..... One tab. daily Pravastatin Sodium 40 Mg Tabs (Pravastatin sodium) ..... One tab. daily BP today: 136/81 Prior BP: / () Orders: C omplete Echo (CPT-02545) S tress Test - Nuclear (13858) S tress Test - Routine (CPT-05463) S chedule Followup (*) BP today: 136/81 Prior BP: / () C ardiac Cath: Continued successful results of RCA stent. Left ventricular systolic dysfunction. EF 45%. (05/19/2004) SETH KOBISARAH MCCAULEY office visit: H is updated medication list for this problem includes: Lisinopril 5 Mg Tabs (Lisinopril) ..... One tab. daily Atenolol 25 Mg Tabs (Atenolol) ..... One tab. daily Aspirin 81 Mg Tabs (Aspirin) ..... One tab. daily Pravastatin Sodium 40 Mg Tabs (Pravastatin sodium) ..... One tab. daily Orders: E KG (CPT-60574) C omplete Echo (CPT-90756) S tress Test - Nuclear (66841) S tress Test - Routine (CPT-64412) S chedule Followup (*) BP today: 136/81 Prior BP: / () C ardiac Cath: Continued successful results of RCA stent. Left ventricular systolic dysfunction. EF 45%. (05/19/2004) SETH JOHNSTON PARISA Date Name Complete Echo Complete Echo Stress Regadenoson Carotid Duplex Bilat eral Complete Echo Sleep Study Titratio n Sleep Study Home STR - Adenosine Complete Echo DLUT Order - 86247 [facility] Order - 50507 FVC Order - 64749 Complete Echo Full PFT Sleep Study Complete Echo Full PFT Complete Echo Complete Echo Complete Echo Carotid Duplex Bilat eral Complete Echo Carotid Duplex Bilat eral Arterial Duplex Lowe r Extremity Bilateral Complete Echo Cardiac Cath - GC AST ALT LIPID PANEL HEPATIC FUNCTION DENNIS EL BASIC METABOLIC PANE L W/EGFR LIPID PANEL Stress Test - Routin e Stress Test - Nuclea r Complete Echo HISTORY OF PROCEDURES Procedure Date Procedure Name Provider Procedure Notes S tatus EKG Gerard Salinas MD completed Regadenoson, 4 units Gerard Salinas MD completed Cardiolite, 2 units Gerard Salinas MD completed SPECT Images Gerard Salinas MD complet ed Stress EKG Gerard Salinas MD completed EKG Gerard Salinas MD completed SNOMED-CT: 05404771 Physical Exam, Performed: Pulse Exam of Foot Gerard Salinas MD completed EKG Gerard Salinas MD completed SNOMED-CT: 642821446504634 Current Medications Documented Gerard Salinas MD completed SNOMED-CT: 15752250 Physical Exam, Performed: Pulse Exam of Foot Gerard Salinas MD completed SNOMED-CT: 625404451351583 Current Medications Documented Gerard Salinas MD completed SNOMED-CT: 33128172 Physical Exam, Performed: Pulse Exam of Foot Gerard Salinas MD completed SNOMED-CT: 694469424990568 Current Medications Documented Gerard Salinas MD completed Stress EKG Donn Ni MD complete d Regadenoson, 4 units Gerard Salinas MD completed Cardiolite, 2 units Gerard Salinas MD completed SPECT Images Jayden Olivia MD complet ed SNOMED-CT: 32844419 Physical Exam, Performed: Pulse Exam of Foot Gerard Salinas MD completed EKG Gerard Salinas MD completed SNOMED-CT: 068673906038747 Current Medications Documented Gerard Salinas MD completed SNOMED-CT: 67478776 Physical Exam, Performed: Pulse Exam of Foot Gerard Salinas MD completed SNOMED-CT: 779645541850986 Current Medications Documented Gerard Salinas MD completed EKG Gerard Salinas MD completed BLOOD COUNT HEMOGLOBIN Gerard Salinas MD completed EKG Gerard Salinas MD completed EKG Gerard Salinas MD completed EKG Gerard Salinas MD completed EKG Gerard Salinas MD completed Schedule Followup Gerard Salinas MD schedul e f/u post procedures completed EKG Gerard Salinas MD completed
--- OUTSIDE RECORDS SUMMARY | 2024-11-22 10:03 | XMS_ITS | Encounter Summary ---
Author Organization [facility] Address [address] [place] [address] Care Team Providers Care Organizational Psychologist Name Role Phone Yuval Wiggins MD Primary Care Provider [phone] Encounter Details Date Type Department Care Team (Late st Contact Info) Description 06/01/2019 Lab Requisition [facility] DermPath Lab [address] [facility], [place] [id number] Marlene Rodriguez DO [address] [facility] 3 [place] [address] Social History Tobacco Use Types Packs/Day Years Used Date Smoking Tobacco: Never Assessed Sex and Gender Information Value Date Recorded Sex Assigned at Not on file 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 Gender Identity Not on file Sexual Orientation Not on file documented as of this encounter Plan of Treatment Not on file documented as of this encounter Procedures Procedure Name Priority Date/Time Associated Diagnosis Comments DERMATOPATHOLOGY Routine 06/01/2019 12:0 0 AM CDT documented in this encounter Results * DERMATOPATHOLOGY (06/01/2019 12:00 AM CDT) Case Report Dermatopathology Report Case: [id number] Authorizing Provider: Marlene Rodriguez DO Collected: 06/01/2019 12:00 AM Ordering Location: [facility] DermPath Lab Received: 06/01/2019 12:30 PM Pathologist: Kalina Ervin MD Specimen: Skin, left chest 9 12:56 PM CDT DERMATOPATHOLOGY LABORATORY Final Diagnosis Specimen A. SKIN, left chest: DERMAL SCAR RESIDUAL SQUAMOUS CELL CARCINOMA NOT IDENTIFIED (L90.5) SEBORRHEIC KERATOSIS, INCIDENTAL (L82.1) 9 12:56 PM CDT DERMATOPATHOLOGY LABORATORY Clinical History R/o SCCIS, acantholytic. Previous Bx: [id number]. 12:56 PM CDT DERMATOPATHOLOGY LABORATORY Gross Description Specimen A: Received is one formalin filled container labeled with the patient's name and designated left chest.The specimen consists of an ellipse measuring [id number] and is oriented with the notch at the 12 o'clock position, not labeled on the requisition. The epidermal surface consists of a centrally located 6x6mm previous biopsy site. The 12 to 6 o'clock margin is inked green. The 6 o'clock to 12 o'clock margin is inked black. The 12 o'clock tip is submitted in cassette 1. The 6 o'clock tip is submitted in cassette 2. The remainder of the ellipse is serially sectioned and submitted in cassettes 3-4. Jar 0. 12:56 PM CDT DERMATOPATHOLOGY LABORATORY Microscopic Description Specimen A. SKIN, left chest: There are fibroblasts and collagen bundles oriented parallel to the skin surface. There are elongated blood vessels, some of which are oriented perpendicular to the skin surface. No residual squamous cell carcinoma is identified. Sections also show an acanthotic lesion, in block 4 away from the scar that is composed of relatively uniform keratinocytes. There is hyperkeratosis and pseudo horn cysts formation. 12:56 PM CDT DERMATOPATHOLOGY LABORATORY Disclaimer An external and internal positive and negative controls are appropriate for the histochemical, immunohistochemical and immunofluorescence stain(s) in this case (if any), except where stated explicitly. The performance characteristics of the stain(s) cited in this report were developed and its performance characteristic determined by the Dermatopathology Laboratory at [facility], directed by Dr. David Ervin. These tests need not be, and therefore are not, approved by the [place] Food and Drug Administration. The tests are used for clinical purposes. Billing Codes Specimen Charges Stain Charges 82926 1 12:56 PM CDT DERMATOPATHOLOGY LABORATORY Embedded Images 12:56 PM CDT DERMATOPATHOLOGY LABORATORY Pathology/Cytolog y TISSUE SPECIMEN FROM SKIN / Unknown 06/01/2019 06/01/2019 12:30 PM CDT us Marlene Rodriguez DO LAB - PATHOLOGY/CYTOLOGY ORDERABLES Final Result DERMATOPATHOLOGY LABORATORY [facility] - Department of Dermatology [address] [facility] 5th [place] [address], [facility] [phone] documented in this encounter Visit Diagnoses Not on filedocumented in this encounter Care Teams Organizational Psychologist Relationship Specialty Start Date End Date Yuval Wiggins MD [address] [place] [address] PCP - General 02/06/15 documented as of this encounter
--- OUTSIDE RECORDS SUMMARY | 2024-11-22 10:03 | XMS_ITS | Clinical Summary ---
Author Organization [facility] Address [address] [place] [address] Care Team Providers Care Software Quality Manager Name Role Phone Faviola Guerrero Primary Care Provider [phone] Allergies No known active allergies Medications albuterol sulfate HFA 108 (90 Base) MCG/ACT inhaler 10/22/2021 Act diamond ELIQUIS 5 MG tablet 04/08/2022 Active atenolol (TENORMIN) 25 MG tablet 04/21/2022 Active SYMBICORT 160-4.5 MCG/ACT inhaler 12/11/2021 Act diamond dorzolamide-timolo l (COSOPT) 22.3-6.8 MG/ML Solution 03/26/2022 Active finasteride (PROSCAR) 5 MG tablet 03/25/2022 Active furosemide (LASIX) 20 MG tablet 04/08/2022 Active gemfibrozil (LOPID) 600 MG tablet 02/26/2022 Active latanoprost (XALATAN) 0.005 % ophthalmic solution 03/26/2022 Active ipratropium-albute rol (DUONEB) 0.5-2.5 (3) MG/3ML Solution 12/25/2021 Active methylPREDNISolone , MANJINDER, (MEDROL DOSEPAK) 4 MG tablet 10/22/2021 Active tamsulosin (FLOMAX) 0.4 MG Cap 04/09/2022 Active SPIRIVA HANDIHALER 18 MCG inhalation capsule 04/16/2022 Active atorvastatin (LIPITOR) 20 MG tablet 05/07/2022 Active Active Problems Problem Noted Date Diagnosed Date 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[facility]) Myelomalacia ([facility]) 07/02/2022 Thoracic spinal stenosis 07/02/2022 Foraminal stenosis of lumbar region 07/02/2022 Radiculopathy, lumbar region 07/02/2022 Spinal stenosis of lumbar re gion with neurogenic claudication 07/02/2022 Other intervertebral disc degeneration, lumbar r egion 07/02/2022 Foraminal stenosis of cervical region 07/02/2022 Spondylolisthesis of cervical region 07/02/2022 Spondylolisthesis of lumbar region 07/02/2022 Radiculopathy, cervical region 07/02/2022 Other cervical disc degenera tion, unspecified cervical region 07/02/2022 Spinal stenosis of cervical region 07/02/2022 Scoliosis of thoracolumbar s pine, unspecified scoliosis type 04/25/2022 Facet hypertrophy of lumbar region 04/25/2022 Pars defect of lumbar spine 04/22/2022 Acute midline low back pain without sciatica Myelopathy ([facility]) 04/22/2022 Abnormal MRI, lumbar spine 04/22/2022 Social History Tobacco Use Types Packs/Day Years Used Date Smoking Tobacco: Former Tobacco Cessation:Counseling Given: Not Answered Alcohol Use Standard Drinks/Week Comments Yes 0 (1 standard drink = 0.6 oz pur e alcohol) OCCASIONALLY DRINKS A BEER Sex and Gender Information Value Date Recorded Sex Assigned at Not on file Legal Sex Male 9:18 AM CDT Gender Identity Not on file Sexual Orientation Not on file Last Filed Vital Signs Vital Sign Reading Time Taken Comments Blood Pressure 118/72 07/10/2022 1: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 Pulse 59 07/10/2022 1: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 Temperature 36.2 C (97.1 F) 07/10/2022 1: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 Respiratory Rate 20 07/08/2022 12:40 PM GRAINING MACHINE OPERATOR Oxygen Saturation 96% 07/10/2022 1: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 Inhaled Oxygen Concentration - - Weight 114.8 kg (253 lb) 07/10/2022 1: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 Height 182.9 cm (6') 07/10/2022 1: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 Body Mass Index 34.31 07/10/2022 1: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 Plan of Treatment Health Maintenance Due Date Last Done Comments Pneumococcal Vaccine: 50+ Years (1 of 1 - PCV) 1992 Zoster Vaccines (1 of 2) 1992 Annual Medicare Wellness Visit 2007 RSV Immunization or 60+ Years (1 - 1-dose 75+ series) 2017 COVID-19 Vaccine (3 - 2023-2 5 season) 2024 07/16/2021, 11/09/2020 DTaP, Tdap and Td Vaccines ( 2 - Td or Tdap) 12/09/2028 12/09/2018 Meningococcal B Vaccine Aged Out No l onger eligible based on patient's age to complete this topic Meningococcal Vaccine Aged Out No leandra bennie eligible based on patient's age to complete this topic RSV Immunizations Under 20 Months Aged Out No longer eligible b ased on patient's age to complete this topic Insurance [employer] Care Teams Software Quality Manager Relationship Specialty Start Date End Date Faviola Guerrero FNP PCP - General Nurse Practitioner Family 01/30/22
--- OUTSIDE RECORDS SUMMARY | 2024-11-22 10:03 | XMS_ITS | Encounter Summary ---
Author Organization [facility] Address [address] [place] [address] Care Team Providers Care Fws Faculty Assistant Name Role Phone Yuval Wiggins MD Primary Care Provider [phone] Encounter Details Date Type Department Care Team (Late st Contact Info) Description 03/24/2019 Lab Requisition [facility] DermPath Lab [address] [facility], [place] [id number] Marlene Rodriguez DO [address] [facility] 3 [place] [address] Social History Tobacco Use Types Packs/Day Years Used Date Smoking Tobacco: Never Assessed Sex and Gender Information Value Date Recorded Sex Assigned at Not on file 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 Gender Identity Not on file Sexual Orientation Not on file documented as of this encounter Plan of Treatment Not on file documented as of this encounter Procedures Procedure Name Priority Date/Time Associated Diagnosis Comments DERMATOPATHOLOGY Routine 03/23/2019 12:0 0 AM CDT documented in this encounter Results * DERMATOPATHOLOGY (03/23/2019 12:00 AM CDT) Case Report Dermatopathology Report Case: [id number] Authorizing Provider: Marlene Rodriguez DO Collected: 03/23/2019 12:00 AM Ordering Location: [facility] DermPath Lab Received: 03/24/2019 12:58 PM Pathologist: Kalina Ervin MD Specimen: Skin, above right eyebrow 9 1:28 PM CDT DERMATOPATHOLOGY LABORATORY Final Diagnosis Specimen A. 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 The specimen consists of a shave biopsy measuring 8x6x2 mm. Jar 0. 1:28 PM CDT DERMATOPATHOLOGY LABORATORY Microscopic Description Specimen A. SKIN, above right eyebrow: Within the dermis there are aggregates of basaloid cells with a high nuclear to cytoplasmic ratio and peripheral palisading. 1:28 PM CDT DERMATOPATHOLOGY LABORATORY Disclaimer An external and internal positive and negative controls are appropriate for the histochemical, immunohistochemical and immunofluorescence stain(s) in this case (if any), except where stated explicitly. The performance characteristics of the stain(s) cited in this report were developed and its performance characteristic determined by the Dermatopathology Laboratory at [facility], directed by Dr. David Ervin. These tests need not be, and therefore are not, approved by the [place] Food and Drug Administration. The tests are used for clinical purposes. Billing Codes Specimen Charges Stain Charges 56353 1 1:28 PM CDT DERMATOPATHOLOGY LABORATORY Embedded Images 1:28 PM CDT DERMATOPATHOLOGY LABORATORY Pathology/Cytolog y TISSUE SPECIMEN FROM SKIN / Unknown 03/23/2019 03/24/2019 12:58 PM CDT us Marlene Rodriguez DO LAB - PATHOLOGY/CYTOLOGY ORDERABLES Final Result DERMATOPATHOLOGY LABORATORY [facility] - Department of Dermatology [address] [place] [address], 5th Floor Lab [address] [phone] documented in this encounter Visit Diagnoses Not on filedocumented in this encounter Care Teams Fws Faculty Assistant Relationship Specialty Start Date End Date Yuval Wiggins MD [address] [place] [address] PCP - General 02/06/15 documented as of this encounter
--- OUTSIDE RECORDS SUMMARY | 2024-11-22 10:03 | XMS_ITS | Encounter Summary ---
Author Organization [facility] Address [address] [place] [address] Care Team Providers Care Wood Milling Machine Operator Name Role Phone Yuval Wiggins MD Primary Care Provider [phone] Encounter Details Date Type Department Care Team (Late st Contact Info) Description 04/21/2019 Lab Requisition [facility] DermPath Lab [address] [facility] [place] [address] Marlene Rodriguez DO [address] [facility] [address] [place] [address] Social History Tobacco Use Types Packs/Day Years Used Date Smoking Tobacco: Never Assessed Sex and Gender Information Value Date Recorded Sex Assigned at Not on file 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 Gender Identity Not on file Sexual Orientation Not on file documented as of this encounter Plan of Treatment Not on file documented as of this encounter Procedures Procedure Name Priority Date/Time Associated Diagnosis Comments DERMATOPATHOLOGY Routine 04/20/2019 12:0 0 AM CDT documented in this encounter Results * DERMATOPATHOLOGY (04/20/2019 12:00 AM CDT) Case Report Dermatopathology Report Case: [id number] Authorizing Provider: Marlene Rodriguez DO Collected: 04/20/2019 12:00 AM Ordering Location: [facility] D[facility] Lab Received: 04/21/2019 12:21 PM Pathologist: Kalina Ervin MD Specimen: Skin, left chest 9 3:14 PM CDT DERMATOPATHOLOGY LABORATORY Final Diagnosis Specimen A. 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 The specimen consists of a shave biopsy measuring 8x8x3 mm. Jar 0. 3:14 PM CDT DERMATOPATHOLOGY LABORATORY Microscopic Description Specimen A. SKIN, left chest: The epidermis shows parakeratosis, full thickness disorderly maturation of keratinocytes, mitoses at different levels, and dyskeratotic cells. 3:14 PM CDT DERMATOPATHOLOGY LABORATORY Disclaimer An external and internal positive and negative controls are appropriate for the histochemical, immunohistochemical and immunofluorescence stain(s) in this case (if any), except where stated explicitly. The performance characteristics of the stain(s) cited in this report were developed and its performance characteristic determined by the Dermatopathology Laboratory at [facility], directed by Dr. David Ervin. These tests need not be, and therefore are not, approved by the [place] Food and Drug Administration. The tests are used for clinical purposes. Billing Codes Specimen Charges Stain Charges 50736 1 3:14 PM CDT DERMATOPATHOLOGY LABORATORY Embedded Images 3:14 PM CDT DERMATOPATHOLOGY LABORATORY Pathology/Cytolog y TISSUE SPECIMEN FROM SKIN / Unknown 04/20/2019 04/21/2019 12:21 PM CDT us Marlene Rodriguez DO LAB - PATHOLOGY/CYTOLOGY ORDERABLES Final Result DERMATOPATHOLOGY LABORATORY [facility] - Department of Dermatology [address] [facility], 5th [place] [address], [facility] [phone] documented in this encounter Visit Diagnoses Not on filedocumented in this encounter Care Teams Wood Milling Machine Operator Relationship Specialty Start Date End Date Yuval Wiggins MD [address] [place] [address] PCP - General 02/06/15 documented as of this encounter
--- OUTSIDE RECORDS SUMMARY | 2024-11-22 10:03 | XMS_ITS | Clinical Summary ---
Author Organization [facility] Address [address] [facility] [place] [address] Care Team Providers Care Evening Or Night Nurse Supervisor Name Role Phone Yuval Wiggins MD Primary Care Provider [phone] Source Comments [facility] [employer],non-owned Affiliates and Associated Physician Practices is amultiple site organization consisting of ambulatory clinics and hospital sitesin [place], [place], [place] and [place]. This disclosure is being madepursuant to the Care Everywhere program and may not contain all information available regarding this patient. 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 Gender Identity Not on file Sexual Orientation Not on file Plan of Treatment Health Maintenance Due Date Last Done Comments DTAP/TDAP/TD VACCINES (1 - Tdap) 1961 PNEUMOCOCCAL VACCINE 50+ (1 of 1 - PCV) 1992 ZOSTER VACCINE (1 of 2) 1992 Respiratory Syncytial Virus (RSV) Vaccine Pt: or over 60 yrs (1 - 1-dose 75+ series) 2017 COVID-19 VACCINE ( - 2023-2 5 season) 2024 DEPRESSION SCREENING 08/03/2024 INFLUENZA VACCINE (Season Ended) 2025 HEPATITIS B VACCINE Aged Out No longe r eligible based on patient's age to complete this topic HIB VACCINE Aged Out No longer eligi ble based on patient's age to complete this topic HPV VACCINE Aged Out No longer eligi ble based on patient's age to complete this topic MENINGOCOCCAL (Group B) VACC INE SHARED DECISION-MAKING Aged Out No longer eligibl e based on patient's age to complete this topic MENINGOCOCCAL GROUPS A/C/Y/W VACCINE Aged Out No longer eligible b ased on patient's age to complete this topic Insurance [facility] [place] [address] [place] [address] Care Teams Evening Or Night Nurse Supervisor Relationship Specialty Start Date End Date Yuval Wiggins MD [address] [place] [address] PCP - General 02/06/15
[2024-11-22 10:12] LABS: LDL Cholesterol Direct 47 mg/dL
== END 2024-11-22 09:08 | disposition home or self-care (01) ==
LOC: ANHLAB 09:09
PROVIDERS: PCP Family Medicine; Visit Provider Physician Assistant
DX: E78.2 Mixed hyperlipidemia (principal); I11.9 Hypertensive heart disease without heart failure; Z00.00 Encounter for general adult medical examination without abnormal findings; I25.10 Atherosclerotic heart disease of native coronary artery without angina pectoris; J44.9 Chronic obstructive pulmonary disease, unspecified; J96.10 Chronic respiratory failure, unspecified whether with hypoxia or hypercapnia; N40.0 Benign prostatic hyperplasia without lower urinary tract symptoms
CPT/HCPCS: 36415; 80053; 80061; 81003; 84443; 85027; 85055

== ENCOUNTER 2025-03-01 13:15 | Outpatient (CLI) | payer OTHER, SELFPAY ==
[2025-03-01] VITALS (7 sets, daily range): PULSE 88–115; O2SAT 3–91
--- OUTSIDE RECORDS SUMMARY | 2025-03-01 13:30 | XMS_ITS | Encounter Summary ---
Author Organization [facility] Address [address] [place] [address] Care Team Providers Care Circus Rider Name Role Phone Yuval [place] MD Primary Care Provider [phone] Encounter Details Date Type Department Care Team (Late st Contact Info) Description 03/24/2019 Lab Requisition [facility] DermPath Lab [address] [facility], [place] [id number] Marlene Rodriguez DO [address] [facility] 3 [place] [address] Social History Tobacco Use Types Packs/Day Years Used Date Smoking Tobacco: Never Assessed Sex and Gender Information Value Date Recorded Sex Assigned at Not on file 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 Gender Identity Not on file Sexual Orientation Not on file documented as of this encounter Plan of Treatment Not on file documented as of this encounter Procedures Procedure Name Priority Date/Time Associated Diagnosis Comments DERMATOPATHOLOGY Routine 03/23/2019 12:0 0 AM CDT documented in this encounter Results * DERMATOPATHOLOGY (03/23/2019 12:00 AM CDT) Case Report Dermatopathology Report Case: [id number] Authorizing Provider: Marlene Rodriguez DO Collected: 03/23/2019 12:00 AM Ordering Location: [facility] DermPath Lab Received: 03/24/2019 12:58 PM Pathologist: Kalina Ervin MD Specimen: Skin, above right eyebrow 9 1:28 PM CDT DERMATOPATHOLOGY LABORATORY Final Diagnosis Specimen A. 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 David Ervin. These tests need not be, and therefore are not, approved by the [place] Food and Drug Administration. The tests are used for clinical purposes. Billing Codes Specimen Charges Stain Charges 07687 1 1:28 PM CDT DERMATOPATHOLOGY LABORATORY Embedded Images 1:28 PM CDT DERMATOPATHOLOGY LABORATORY Pathology/Cytolog y TISSUE SPECIMEN FROM SKIN / Unknown 03/23/2019 03/24/2019 12:58 PM CDT us Marlene Rodriguez DO LAB - PATHOLOGY/CYTOLOGY ORDERABLES Final Result DERMATOPATHOLOGY LABORATORY [facility] - Department of Dermatology [address] [place] [address], 5th Floor Lab [address] [phone] documented in this encounter Visit Diagnoses Not on filedocumented in this encounter Care Teams Circus Rider Relationship Specialty Start Date End Date Yuval W[place] MD [address] [place] [address] PCP - General 02/06/15 documented as of this encounter
--- OUTSIDE RECORDS SUMMARY | 2025-03-01 13:30 | XMS_ITS | Encounter Summary ---
Author Organization [facility] Address [address] [facility] [place] [address] Care Team Providers Care Drafter Apprentice Name Role Phone Yuval [place] MD Primary Care Provider [phone] Encounter Details Date Type Department Care Team (Late st Contact Info) Description 06/01/2019 Lab Requisition [facility] DermPath Lab [address] 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 DermPath Lab Received: 06/01/2019 12:30 PM Pathologist: Kalina Ervin MD Specimen: Skin, left chest 9 12:56 PM CDT DERMATOPATHOLOGY LABORATORY Final Diagnosis Specimen A. 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 Previous Bx: [id number]. 12:56 PM CDT DERMATOPATHOLOGY LABORATORY Gross Description Specimen A: Received is one formalin filled container labeled with the patient's name and designated left chest.The specimen consists of an ellipse measuring [id number] and is oriented with the notch at [...] characteristic determined by the Dermatopathology Laboratory at [facility], directed by Dr. David Ervin. These tests need not be, and therefore are not, approved by the [place] Food and Drug Administration. The tests are used for clinical purposes. Billing Codes Specimen Charges Stain Charges 47654 1 12:56 PM CDT DERMATOPATHOLOGY LABORATORY Embedded Images 12:56 PM CDT DERMATOPATHOLOGY LABORATORY Pathology/Cytolog y TISSUE SPECIMEN FROM SKIN / Unknown 06/01/2019 06/01/2019 12:30 PM CDT us Marlene Rodriguez DO LAB - PATHOLOGY/CYTOLOGY ORDERABLES Final Result DERMATOPATHOLOGY LABORATORY [facility] - Department of Dermatology [address] [facility] 5th [place] [address], [facility] [phone] documented in this encounter Visit Diagnoses Not on filedocumented in this encounter Care Teams Drafter Apprentice Relationship Specialty Start Date End Date Yuval Wigg[place] MD [address] [place] [address] PCP - General 02/06/15 documented as of this encounter
--- OUTSIDE RECORDS SUMMARY | 2025-03-01 13:30 | XMS_ITS | Clinical Summary ---
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) 07/02/2022 Thoracic spinal stenosis 07/02/2022 Foraminal stenosis [...] midline low back pain without sciatica Myelopathy ([facility]) 04/22/2022 Abnormal MRI, lumbar spine 04/22/2022 Social [...] Comments Blood Pressure 118/72 07/10/2022 1:48 PM NEWS PRODUCER Pulse 59 07/10/2022 1:48 PM NEWS PRODUCER Temperature 36.2 C (97.1 F) 07/10/2022 1:48 PM NEWS PRODUCER Respiratory Rate 20 07/08/2022 12:40 PM NEWS PRODUCER Oxygen Saturation 96% 07/10/2022 1:48 PM NEWS PRODUCER Inhaled Oxygen Concentration - - Weight 114.8 kg (253 lb) 07/10/2022 1:48 PM NEWS PRODUCER Height 182.9 cm (6') 07/10/2022 1:48 PM NEWS PRODUCER Body Mass Index 34.31 07/10/2022 1:48 PM NEWS PRODUCER Plan of Treatment Health Maintenance Due Date [...] complete this topic Insurance [employer] Care Teams Cloth Tearer Relationship Specialty Start Date End Date Faviola Guerrero FNP PCP - General Nurse Practitioner Family 01/30/22
--- OUTSIDE RECORDS SUMMARY | 2025-03-01 13:30 | XMS_ITS | Clinical Summary ---
Author Organization [facility] Address [address] [place] [address] Care Team Providers Care Public Relations Account Executive Name Role Phone Yuval [place] MD Primary Care Provider [phone] Source Comments [facility],non-owned Affiliates and Associated Physician Practices is amultiple site organization consisting of ambulatory clinics and hospital sitesin [place], [place], [place] and [place]. This disclosure is being madepursuant to the Care Everywhere program and may not contain all information available regarding this patient. 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 [place] [place] [address] Care Teams Public Relations Account Executive Relationship Specialty Start Date End Date Yuval Wiggins MD [address] [place] [address] PCP - General 02/06/15
--- OUTSIDE RECORDS SUMMARY | 2025-03-01 13:30 | XMS_ITS | Encounter Summary ---
Author Organization [facility] Address [address] [place] [address] Care Team Providers Care Hand Deicer Element Winder Name Role Phone Yuval [place] MD Primary Care Provider [phone] Encounter Details Date Type Department Care Team (Late st Contact Info) Description 04/21/2019 Lab Requisition [facility] DermPath Lab [address] [facility], [place] [address] Marlene Rodriguez DO [address] [facility] 3 DEPT [place] [address] Social History Tobacco Use Types Packs/Day Years Used Date Smoking Tobacco: Never Assessed Sex and Gender Information Value Date Recorded Sex Assigned at Not on file 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 Gender Identity Not on file Sexual Orientation Not on file documented as of this encounter Plan of Treatment Not on file documented as of this encounter Procedures Procedure Name Priority Date/Time Associated Diagnosis Comments DERMATOPATHOLOGY Routine 04/20/2019 12:0 0 AM CDT documented in this encounter Results * DERMATOPATHOLOGY (04/20/2019 12:00 AM CDT) Case Report Dermatopathology Report Case: [id number] Authorizing Provider: Marlene Rodriguez DO Collected: 04/20/2019 12:00 AM Ordering Location: [facility] DermPath Lab Received: 04/21/2019 12:21 PM Pathologist: Kalina Ervin MD Specimen: Skin, left chest 9 3:14 PM CDT DERMATOPATHOLOGY LABORATORY Final Diagnosis Specimen A. 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 David Ervin. These tests need not be, and therefore are not, approved by the [place] Food and Drug Administration. The tests are used for clinical purposes. Billing Codes Specimen Charges Stain Charges 02821 1 3:14 PM CDT DERMATOPATHOLOGY LABORATORY Embedded Images 3:14 PM CDT DERMATOPATHOLOGY LABORATORY Pathology/Cytolog y TISSUE SPECIMEN FROM SKIN / Unknown 04/20/2019 04/21/2019 12:21 PM CDT us Marlene Rodriguez DO LAB - PATHOLOGY/CYTOLOGY ORDERABLES Final Result DERMATOPATHOLOGY LABORATORY [facility] - Department of Dermatology [address] [facility], 5th Floor [place] [address], [facility] [phone] documented in this encounter Visit Diagnoses Not on filedocumented in this encounter Care Teams Hand Deicer Element Winder Relationship Specialty Start Date End Date Yuval Wiggins MD [address] [place] [address] PCP - General 02/06/15 documented as of this encounter
--- NOTE | 2025-03-01 14:10 | HOMEO2EVAL ---
Evaluation was performed at [facility] Home Oxygen Evaluation RC: Home Oxygen (O2) Evaluation Start: 03/01/25 13:58 Freq: Status: Active Protocol: RPE Activity Type Activity Date Activity User E-sign Co-sign Detail Recorded Client Recorded Date Recorded By Document 03/01/25 13:00 [email or web address] [email or web address] 03/01/25 14:10 DJO Document 03/01/25 13:05 [email or web address] [email or web address] 03/01/25 14:10 DJO Document 03/01/25 13:07 [email or web address] [email or web address] 03/01/25 14:10 DJO Document 03/01/25 13:10 [email or web address] [email or web address] 03/01/25 14:10 DJO Document 03/01/25 13:15 [email or web address] [email or web address] 03/01/25 14:10 DJO Document 03/01/25 13:20 [email or web address] [email or web address] 03/01/25 14:10 DJO Document 03/01/25 13:25 [email or web address] [email or web address] 03/01/25 14:10 DJO 03/01/25 03/01/25 03/01/25 13:00 13:05 13:07 Home O2 Evaluation [Oxygen] -Test Phase Resting Exercise Resting -Oxygen Delivery Room Air Room Air Room Air -Oxygen Flow Rate (L/min) [Pulse Oximetry] -Pulse Oximetry (90-100 %) 91 85 L 91 [Pulse Rate] -Pulse Rate (60-100 beats/min) 90 113 H 92 [Evaluation] -Activity Tolerance [Exercise] -Ambulation Distance (feet) -Ambulation Distance (meters) [Charges] -Evaluation Charges O2 Evaluation by Pulmonary 03/01/25 03/01/25 03/01/25 13:10 13:15 13:20 Home O2 Evaluation [Oxygen] -Test Phase Exercise Exercise Exercise -Oxygen Delivery Nasal Cannula Nasal Cannula Nasal Cannula -Oxygen Flow Rate (L/min) 1 2 [Pulse Oximetry] -Pulse Oximetry (90-100 %) 86 L 87 L 3 L [Pulse Rate] -Pulse Rate (60-100 beats/min) 113 H 114 H 88 [Evaluation] -Activity Tolerance [Exercise] -Ambulation Distance (feet) -Ambulation Distance (meters) [Charges] -Evaluation Charges 03/01/25 13:25 Home O2 Evaluation [Oxygen] -Test Phase Exercise -Oxygen Delivery Nasal Cannula -Oxygen Flow Rate (L/min) 4 [Pulse Oximetry] -Pulse Oximetry (90-100 %) 91 [Pulse Rate] -Pulse Rate (60-100 beats/min) 115 H [Evaluation] -Activity Tolerance Fair [Exercise] -Ambulation Distance (feet) 250 -Ambulation Distance (meters) 76.19 [Charges] -Evaluation Charges
--- NOTE | 2025-03-22 13:01 | P.PCNPFT_ITS ---
PFT Procedure Performed PFT Procedure Performed Spirometry with Pre/Post Bronchodilator Plethysmography (Lung Vol) Diffusing Cap (DLCO) Flow Vol Loop PFT Interpretation DOS: 03/01/2025 REQUESTING: .Dr Yuval Wiggins REASON FOR TESTING: COPD, hypoxemia PULMONARY FUNCTION TESTS Results are reliable and reproducible. Repeatability of spirometry FEV1 maneuver pre and post bronchodilator is Grade A. GLI 2012 reference equations were used. Spirometry: The pre-bronchodilator FEV1 is 2.09 L, 70%, mildly reduced. The pre-bronchodilator FVC is 2.79 L, 68%, mildly reduced. The FEV1/FVC ratio is 75%, normal. After bronchodilator, the FEV1 is 2.11 L, 70%, +1%. The post- bronchodilator FVC is 2.76 L, 67%, -1%. The FEV1/FVC ratio is 76%, normal. Lung volumes: The total lung capacity is 4.99 L, 67%, reduced. The residual volume is 2.22 L, 78%, normal. The RV/TLC is 44%. Airway resistance is incr eased. Diffusion: DLCO is 11.3, 47%, reduced. The DLCO/VA is 3.44, 100%, normal. Flow volume loop: The flow volume loop has a normal expiratory limb on the 1st attempt but could not be replicated on the 2nd and 3rd attempt. The inspiratory limb is attenuated. IMPRESSION: Spirometry shows preserved ratio impaired spirometry. PRISm, a normal ratio of FEV1 to FVC but FEV1 is less than 80% predicted. The patient does have restriction on lung volumes, no air trapping, diffusion impairment which corrects for alveolar volume. There is no response to bronchodilator. Clinical correlation is recommended. Compared to a prior study 01/16/2022, there has been a small decreased in the FEV1 which was 2.32 L now 2.09 L. the FVC was 3.14 L, 75% now 2.79 L, 68%. The ratio was 74% which is the same as it is now. There was no significant response to bronchodilator. The total lung capacity was 5.42 L, 73% predicted and now is slightly lower 4.99 L, 67% predicted. Residual volume is the same. DLCO is significantly lower, was 15.6 and now 11.3, was 63% predicted now 47% predicted. DLCO did correct to normal for the alveolar volume. Shazia Ba MD
== END 2025-03-01 13:16 | disposition home or self-care (01) ==
PROVIDERS: PCP Family Medicine; Visit Provider Family Medicine
DX: J44.9 Chronic obstructive pulmonary disease, unspecified (principal)
CPT/HCPCS: 94060; 94618; 94726; 94729

== ENCOUNTER 2025-04-05 10:03 | Outpatient (CLI) | payer OTHER, SELFPAY ==
[2025-04-05 10:30] LABS: Hematocrit 46.1 % (42.0-52.0); Hemoglobin 14.8 g/dL (14.0-18.0); Immature Granulocyte Percent A 0.3 % (0-0.5); Immature Platelet Fraction Pct 1.8 % (0.9-11.2); Lymphocytes Absolute Auto 0.91 K/mm3 (0.9-3.2); Mean Corpuscular HGB Conc 32.1 g/dl (32-36); Mean Corpuscular Hemoglobin 32.3 pg (26-34); Mean Corpuscular Volume 100.7 fl (80-100); Nucleated Red Blood Cells Absolute Auto 0.000 K/mm3 (0.0-0.012); Nucleated Red Blood Cells Perc 0.0 % (0.0-0.2); Platelet Count Result 136 k/mm3 (150-375); Red Blood Count 4.58 M/mm3 (4.6-6.20); White Blood Count 6.1 K/mm3 (4.5-10.0)
[2025-04-05 10:50] LABS: Alanine Aminotransferase 16 U/L (6-50); Albumin Level 4.0 g/dL (3.5-5.1); Alkaline Phosphatase 70 U/L (38-126); Anion Gap 6 mmol/L (4-12); Aspartate Amino Transferase 29 U/L (17-59); Bilirubin,Total 0.6 mg/dL (0.2-1.3); Blood Urea Nitrogen 14 mg/dL (9-20); Calcium 9.0 mg/dL (8.4-10.2); Carbon Dioxide 33 mmol/L (22-30); Chloride 99 mmol/L (98-107); Estimated Glomerular Filt Rate > 60; Glucose 97 mg/dL (65-110); Potassium 4.7 mmol/L (3.4-5.0); Sodium 138 mmol/L (137-145); Total Protein 7.2 g/dL (6.3-8.2)
--- OUTSIDE RECORDS SUMMARY | 2025-04-05 11:09 | XMS_ITS | Clinical Summary ---
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) Myelomalacia ([facility]) 07/02/2022 Thoracic spinal stenosis 07/02/2022 [...] midline low back pain without sciatica Myelopathy ([facility]) 04/22/2022 Abnormal MRI, lumbar spine [...] Comments Blood Pressure 118/72 07/10/2022 1:48 PM PRINTER SMALL PRINT SHOP Pulse 59 07/10/2022 1:48 PM PRINTER [employer] Temperature 36.2 C (97.1 F) 07/10/2022 1:48 PM PRINTER [employer] PRINT SHOP Respiratory Rate 20 07/08/2022 12:40 PM PRINTER [employer]OP Oxygen Saturation 96% 07/10/2022 1:48 PM PRINTER [employer] PRINT SHOP Inhaled Oxygen Concentration - - Weight 114.8 kg (253 lb) 07/10/2022 1:48 PM PRINTER [employer] PRINT SHOP Height 182.9 cm (6') 07/10/2022 1:48 PM PRINTER [employer] SHOP Body Mass Index 34.31 07/10/2022 1:48 PM PRINTER [employer] PRINT SHOP Plan of Treatment Health Maintenance Due Date [...] complete this topic Insurance [employer] Care Teams Insurance Actuary Relationship Specialty Start Date End Date Faviola Guerrero FNP PCP - General Nurse Practitioner Family 01/30/22
== END 2025-04-05 10:04 | disposition home or self-care (01) ==
LOC: ANHLAB 10:04
PROVIDERS: PCP Family Medicine; Visit Provider Physician Assistant
DX: E78.2 Mixed hyperlipidemia (principal); I11.9 Hypertensive heart disease without heart failure; I25.10 Atherosclerotic heart disease of native coronary artery without angina pectoris; J44.9 Chronic obstructive pulmonary disease, unspecified; J96.10 Chronic respiratory failure, unspecified whether with hypoxia or hypercapnia; N40.0 Benign prostatic hyperplasia without lower urinary tract symptoms; R79.89 Other specified abnormal findings of blood chemistry
CPT/HCPCS: 36415; 80053; 85025; 85055